=== PATIENT | male | born 1955 | race Caucasian/White ===

== ENCOUNTER 2016-11-12 22:54 | Inpatient (IN) | payer MEDICARE ==
[2016-11-12 23:16] VITALS: BP 128/63
[2016-11-12] MEDS ORDERED: Magnesium Hydroxide (MOM) 30 mL UDC PO PRN (23:21)
[2016-11-12] MEDS ORDERED: Fleet Enema 135 mL RC PRN (23:21)
[2016-11-12] MEDS ORDERED: Maalox 30 mL Cup PO PRN (23:21)
[2016-11-13] MEDS: INSULIN ASPART SLIDING SCALE 100 UNITS/ML UNIT SUBQ SCH ×4 (06:53→21:06)
[2016-11-13] MEDS: Aspirin 81mg Chewable Tab PO SCH (08:34)
--- NOTE | 2016-11-13 19:47 | History & Physical ---
ADMIT DATE: 11/12/2016 CHIEF COMPLAINT: Depression. HISTORY OF PRESENT ILLNESS: The patient is a 61-year-old male with past medical history significant for spinal cord injury with quadriparesis, diabetes mellitus, Parkinson's disease, depression, ____ [place] under Dr. Rangel's service for treatment. The patient DICTATION ENDS HERE JOB# [id number]
--- NOTE | 2016-11-13 19:48 | History & Physical ---
ADMIT DATE: 11/13/2016 CHIEF COMPLAINT: Severe depression. HISTORY OF PRESENT ILLNESS: The patient is a 61-year-old male with long history of cervical spine injury with quadriparesis, diabetes mellitus, Parkinson's disease, depression, admitted to [facility] for treatment. The patient denies any chest pain, shortness of breath, nausea, vomiting, fever, or chills. The patient has been very depressed. PAST MEDICAL HISTORY: Significant for diabetes mellitus, Parkinson's disease, cervical spine injury with quadriparesis, and history of depression. PAST SURGICAL HISTORY: Cervical spine surgery. ALLERGIES: None. MEDICATIONS: Follow admission reconciliation. SOCIAL HISTORY: Nonsmoker, no alcohol, no drug. FAMILY HISTORY: Noncontributory. REVIEW OF SYSTEMS: RENAL SYSTEM: No history of chronic renal disorder. CARDIOVASCULAR SYSTEM: No coronary artery disease. ENDOCRINE SYSTEM: History of diabetes mellitus. GASTROINTESTINAL SYSTEM: No upper or lower gastrointestinal bleed. NEUROLOGICAL: He has history of Parkinson's disease and spinal cord injury with spastic quadriparesis. MUSCULOSKELETAL SYSTEM: He has weakness of the upper and lower extremities. RESPIRATOR SYSTEM: No asthma. HEMATOLOGIC SYSTEM: No bleeding tendencies. GENITOURINARY: No dysuria, hematuria. PHYSICAL EXAMINATION: GENERAL: He is awake, alert, oriented, not in pain or distress. VITAL SIGNS: Temperature 97.8, heart rate 62, and blood pressure 131/70. HEENT: Normocephalic. Pupils are reacting and equal to light and accommodation. Sclerae clear. NECK: Supple. Negative for lymphadenopathy, JVD or bruit. CHEST: Bilaterally normal. No rhonchi or wheezing. HEART: S1 and S2 normal. No murmur or gallop. ABDOMEN: Soft. Bowel sounds positive. EXTREMITIES: No edema. BACK: Normal. SKIN: Significant for cellulitis of the right lower extremity. NEUROLOGIC: Awake, alert, and oriented. He has a spastic quadriparesis with upper or lower extremities. ASSESSMENT: 1. Diabetes mellitus. 2. Parkinson's disease. 3. Spinal cord injury with quadriparesis. 4. Cellulitis of the right lower extremity. 5. Major depression. PLAN: The patient admitted to the hospital under Dr. Rangel's service. Medical problem to be addressed during this hospitalization is depression. Medical problems to be addressed after discharge are Parkinson disease and diabetes mellitus. The patient is medically stable for activity. Thank Dr. Moraes for asking me to see your patient. JOB# [id number]
--- NOTE | 2016-11-14 00:33 | Psychosocial Evaluation ---
DATE OF SERVICE: 11/13/2016 CHIEF COMPLAINT: Suicidal ideations. HISTORY OF PRESENT ILLNESS: The patient is a 61-year-old male with history of depression and Parkinson's disease. The patient was placed on a hold for dangers to self after the patient wanted to kill himself with plan to either overdose on pills or slash his wrist. The patient does have history of suicidal attempts with the same plans. The patient said that he has been feeling depressed because he is "tired of my Parkinson's disease." He has been feeling hopeless and helpless, especially that his medical condition is getting worse. The patient also has been having lack of energy and lack of motivations. Also, has not been able to sleep at night. PAST PSYCHIATRIC HISTORY: The patient has history of depression and suicidal attempts. He is currently on Prozac. PAST MEDICAL HISTORY: The patient has Parkinson's disease. SOCIAL HISTORY: The patient lives with his girlfriend. He is single, never , and has no children. He denies alcohol or street drug use, but he said that he occasionally smokes marijuana. He denies any legal issues and denies any history of abuse. ALLERGIES: CLONAZEPAM. MENTAL STATUS EXAMINATION: The patient appears older than his stated age. He is on wheelchair. Shaky and restless. The patient denies any hallucinations or delusions. Admits to suicidal ideations, but denies any homicidal ideations. The patient is alert and oriented to time, place, person, and situation. Intact immediate, recent, and remote memories. Fair insight. Fair judgment. He seems to be of average intelligence based on his verbal ability. ASSESSMENT: PRIMARY DIAGNOSIS: Major depression, severe, recurrent, without psychotic features. MEDICAL DIAGNOSIS: Parkinson disease. TREATMENT PLAN: We will monitor the patient's condition and behavior closely. We will start individual as well as milieu psychotherapy. We will monitor psychotropic medications. We will continue Prozac. Also, supportive therapy. ESTIMATED LENGTH OF STAY: 7-10 days. THE PATIENT'S STRENGTHS AND WEAKNESSES: The patient's strength is not clear at this time. Weakness is ineffective coping. AFTER-DISCHARGE PLAN: Outpatient treatment and followup will continue as an outpatient. CRITERIA FOR DISCHARGE: The patient will not be suicidal and will stabilize psychotropic medications and we will establish outpatient treatment plans. JOB# [id number]
[2016-11-14] MEDS: INSULIN ASPART SLIDING SCALE 100 UNITS/ML UNIT SUBQ SCH ×4 (06:30→20:25)
[2016-11-14] MEDS: Aspirin 81mg Chewable Tab PO SCH (08:58)
[2016-11-14] MEDS: Therahoney Gel 42.5gm Tube TP SCH (08:58)
--- NOTE | 2016-11-14 15:20 | Internal Medicine Prog Note ---
Internal Medicine Subjective - Subjective Service Date: 11/14/16 Patient seen and examined:: with staff Patient is:: awake, in bed Per staff patient has:: no adverse event Internal Medicine Objective - Results Recent Labs: Laboratory Last Values POC Glucose 250 MG/DL (70 - 105) H 11/14/16 11:10 Hemoglobin A1c % 6.2 % (4.0-6.0) H 11/13/16 08:25 - Physical Exam Vitals and I&O: Vital Signs Temp 98.2 F 11/14/16 14:00 Pulse 73 11/14/16 14:00 Resp 20 11/14/16 14:00 BP 120/74 11/14/16 14:00 Pulse Ox 98 11/14/16 14:00 Intake & Output 11/13/16 11/14/16 11/14/16 18:59 06:59 18:59 Intake Total 1000 Balance 1000 Intake: Oral 1000 Other: # Voids 3 # Bowel Movements 1 Active Medications: Current Medications Acetaminophen (Tylenol) 650 mg PO Q6H PRN PRN Reason: Mild Pain/Headache/T above 101 Stop: 01/11/17 23:20 Last Admin: 11/13/16 01:15 Dose: 650 mg Al Hydrox/Mg Hydrox/Simethicone (Maalox) 30 ml PO Q6H PRN PRN Reason: Dyspepsia Stop: 01/11/17 23:20 Aspirin (Aspirin Chewable) 81 mg PO DAILY [facility] Stop: 01/12/17 08:59 Last Admin: 11/14/16 08:58 Dose: 81 mg Carbidopa/Levodopa (Sinemet 25mg-100 Mg) 1 tab PO Q2HR PRN PRN Reason: Parkinson's Stop: 01/12/17 18:18 Last Admin: 11/14/16 14:38 Dose: 1 tab Cephalexin Monohydrate (Keflex) 500 mg PO Q12HR [facility] Stop: 01/12/17 08:59 Last Admin: 11/14/16 08:58 Dose: 500 mg Entacapone (Comtan) 200 mg PO TID [facility] Stop: 01/12/17 08:59 Last Admin: 11/14/16 14:38 Dose: 200 mg Fluoxetine HCl (Prozac) 40 mg PO DAILY [facility] Stop: 01/12/17 08:59 Last Admin: 11/14/16 08:58 Dose: 40 mg Gabapentin (Neurontin) 300 mg PO TID [facility] Stop: 01/12/17 08:59 Last Admin: 11/14/16 14:38 Dose: 300 mg Ibuprofen (Motrin) 600 mg PO Q6HR PRN PRN Reason: Pain (Mild) Stop: 01/11/17 23:34 Last Admin: 11/13/16 20:00 Dose: 600 mg Insulin Aspart (Novolog Insulin Sliding Scale) 0 units SUBQ ACHS [facility] PRN Reason: Protocol Stop: 01/12/17 07:29 Last Admin: 11/14/16 11:18 Dose: 4 units Lorazepam (Ativan) 1 mg PO Q6H PRN; Protocol PRN Reason: Anxiety/Agitation Stop: 01/11/17 23:20 Last Admin: 11/13/16 20:00 Dose: 1 mg Magnesium Hydroxide (Milk Of Magnesia) 30 ml PO HS PRN PRN Reason: Constipation Stop: 01/11/17 23:20 Metformin HCl (Glucophage) 500 mg PO BID [facility] Stop: 01/12/17 08:59 Last Admin: 11/14/16 08:58 Dose: 500 mg Pramipexole Dihydrochloride (Mirapex) 0.75 mg PO TID [facility] Stop: 01/12/17 08:59 Last Admin: 11/14/16 14:38 Dose: 0.75 mg Sodium Phosphate (Fleet Enema) 135 ml RC DAILY PRN PRN Reason: Constipation Stop: 01/11/17 23:20 Wound Care/Dressing Products (Therahoney) 1 appl TP DAILY [facility] Stop: 01/12/17 08:59 Last Admin: 11/14/16 08:58 Dose: 1 appl Zolpidem Tartrate (Ambien) 5 mg PO HS PRN PRN Reason: Insomnia Stop: 01/11/17 23:20 General: alert HEENT: NC/AT, PERRLA, EOMI, throat clear Neck: Supple, No JVD, No thyromegaly Lungs: CTAB Cardiovascular: RRR, Normal S1, Normal S2 Abdomen: soft, non-tender Extremities: clear Neurological: alert Internal Medicine Assmt/Plan - Assessment Assessment: 1.DM 2.PARKINSON DISEASE. 3.QUADRIPARESIS. 4.DEPRESSION. - Plan Plan: CONTINUE ON CURRENT MEDICATION AND DIET.
--- NOTE | 2016-11-14 21:32 | Progress Notes ---
DATE: 11/14/2016 SUBJECTIVE: Chart reviewed and the patient interviewed. Also discussed the patient's condition with the staff and reviewed records and labs. The patient still has episodes of irritability and anger. The patient also is still severely depressed. Also, noticed by staff to talk to himself. He also is still demanding at times and is "want computer and Internet right now." He is on the other hand easier to redirect him and he is cooperative in regard to his treatment. He continued to take Prozac at a dose of 40 mg everyday. The patient is frustrated with his medical issues and with his medical problems. During interview, the patient is shaky secondary to Parkinson's. Also, is on wheelchair and anxious. He is cooperative with fair eye contact and normal tone and rate of speech. ASSESSMENT: The patient is still depressed. TREATMENT PLAN: Continue to monitor his behavior and his condition closely. Also, continue adjusting psychotropic medications and working on his ineffective coping. JOB# [id number]
[2016-11-15] MEDS: INSULIN ASPART SLIDING SCALE 100 UNITS/ML UNIT SUBQ SCH ×4 (06:36→21:10)
[2016-11-15] MEDS: Therahoney Gel 42.5gm Tube TP SCH (08:29)
[2016-11-15] MEDS: Aspirin 81mg Chewable Tab PO SCH (08:29)
--- NOTE | 2016-11-15 15:37 | Internal Medicine Prog Note ---
Internal Medicine Subjective - Subjective Service Date: 11/15/16 Patient seen and examined:: without staff Patient is:: awake, in bed Per staff patient has:: no adverse event Internal Medicine Objective - Results Recent Labs: Laboratory Last Values POC Glucose 108 MG/DL (70 - 105) H 11/15/16 12:14 Hemoglobin A1c % 6.2 % (4.0-6.0) H 11/13/16 08:25 - Physical Exam Vitals and I&O: Vital Signs Temp 97.8 F 11/15/16 06:07 Pulse 74 11/15/16 06:07 Resp 18 11/15/16 06:07 BP 117/56 11/15/16 06:07 Pulse Ox 98 11/15/16 06:07 Intake & Output 11/14/16 11/15/16 11/15/16 18:59 06:59 18:59 Intake Total 1200 480 Balance 1200 480 Weight (lbs) 72.212 kg Intake: Oral 1200 480 Other: # Voids 1 # Bowel Movements 1 Active Medications: Current Medications Acetaminophen (Tylenol) 650 mg PO Q6H PRN PRN Reason: Mild Pain/Headache/T above 101 Stop: 01/11/17 23:20 Last Admin: 11/13/16 01:15 Dose: 650 mg Al Hydrox/Mg Hydrox/Simethicone (Maalox) 30 ml PO Q6H PRN PRN Reason: Dyspepsia Stop: 01/11/17 23:20 Aspirin (Aspirin Chewable) 81 mg PO DAILY [facility] Stop: 01/12/17 08:59 Last Admin: 11/15/16 08:29 Dose: 81 mg Carbidopa/Levodopa (Sinemet 25mg-100 Mg) 1 tab PO Q2HR PRN PRN Reason: Parkinson's Stop: 01/12/17 18:18 Last Admin: 11/15/16 12:20 Dose: 1 tab Cephalexin Monohydrate (Keflex) 500 mg PO Q12HR [facility] Stop: 01/12/17 08:59 Last Admin: 11/15/16 08:30 Dose: 500 mg Entacapone (Comtan) 200 mg PO TID [facility] Stop: 01/12/17 08:59 Last Admin: 11/15/16 08:29 Dose: 200 mg Fluoxetine HCl (Prozac) 40 mg PO DAILY [facility] Stop: 01/12/17 08:59 Last Admin: 11/15/16 08:30 Dose: 40 mg Gabapentin (Neurontin) 300 mg PO TID [facility] Stop: 01/12/17 08:59 Last Admin: 11/15/16 08:30 Dose: 300 mg Ibuprofen (Motrin) 600 mg PO Q6HR PRN PRN Reason: Pain (Mild) Stop: 01/11/17 23:34 Last Admin: 11/14/16 22:30 Dose: 600 mg Insulin Aspart (Novolog Insulin Sliding Scale) 0 units SUBQ ACHS [facility] PRN Reason: Protocol Stop: 01/12/17 07:29 Last Admin: 11/15/16 12:20 Dose: Not Given Lorazepam (Ativan) 1 mg PO Q6H PRN; Protocol PRN Reason: Anxiety/Agitation Stop: 01/11/17 23:20 Last Admin: 11/13/16 20:00 Dose: 1 mg Magnesium Hydroxide (Milk Of Magnesia) 30 ml PO HS PRN PRN Reason: Constipation Stop: 01/11/17 23:20 Metformin HCl (Glucophage) 500 mg PO BID [facility] Stop: 01/12/17 08:59 Last Admin: 11/15/16 08:29 Dose: 500 mg Pramipexole Dihydrochloride (Mirapex) 0.75 mg PO TID [facility] Stop: 01/12/17 08:59 Last Admin: 11/15/16 08:31 Dose: 0.75 mg Sodium Phosphate (Fleet Enema) 135 ml RC DAILY PRN PRN Reason: Constipation Stop: 01/11/17 23:20 Wound Care/Dressing Products (Therahoney) 1 appl TP DAILY [facility] Stop: 01/12/17 08:59 Last Admin: 11/15/16 08:29 Dose: 1 appl Zolpidem Tartrate (Ambien) 5 mg PO HS PRN PRN Reason: Insomnia Stop: 01/11/17 23:20 General: alert HEENT: NC/AT, PERRLA, EOMI, throat clear Neck: Supple, No JVD, No thyromegaly Lungs: CTAB Cardiovascular: RRR, Normal S1, Normal S2 Abdomen: soft, non-tender Extremities: clear Neurological: alert Internal Medicine Assmt/Plan - Assessment Assessment: 1.DM 2.PARKINSON DISEASE. 3.QUADRIPARESIS. 4.DEPRESSION. - Plan Plan: CONTINUE ON CURRENT MEDICATION AND DIET. Nutritional Asmnt/Malnutr-PDOC - Dietary Evaluation Malnutrition Findings (Please click <Entered> for more info): Nutritional Asmnt/Malnutrition Start: 11/14/16 12: 38 Text: Status: Complete Freq: Document 11/14/16 18:51 [facility] (Rec: 11/14/16 18:57 [facility] [id number]) Nutritional Asmnt/Malnutrition Patient General Information Nutritional Screening Consult Diagnosis Major depression Pertinent Medical Hx/Surgical Hx DM, Parkinson's disease, cervical spine injury with quadriplesis, depression Subjective Information Nutrition Consult for pressure ulcer received and completed. Pt is a 61-year-old male from [facility] admitted with chief complaint of severe depression . Pt was asleep during time of visit. Pt appears well nourished with no signs of muscle or fat depletion. Current Diet Order/ Nutrition Support MEÑO Pertinent Medications Novolog, Glucophage Pertinent Labs (11/13) A1C 6.2H. (11/14) POC Glucose 190H-250H Nutritional Hx/Data Height 1.75 m Height (Calculated Centimeters) 175.3 Current Weight (lbs) 72.212 kg Weight (Calculated Kilograms) 72.2 Weight (Calculated Grams) 58867.9 [place] Body Weight 160 % [place] Body Weight 100 Weight Status Approriate GI Symptoms GI Symptoms None Food Allergies No Skin Integrity/Comment: Franco [place]. Stage 1 pressure ulcer to Left Medial [place] Current %PO Good (75-100%) Estimated Nutritional Goals BEE in Kcals: Using Current wt Calories/Kcals/Kg [facility] 72.4 kg Kcals Calculated 0249-8206 kcals/day (25-30 kcals/kg) Protein: Using Current wt Protein g/kg: Based on current wt 72.4 kg with consideration of wound Protein Calculated 72-86 gm/day (1-1.2 gm/kg) Fluid: ml 1413-2069 ml/day (1 ml/kcal) Nutritional Problem 1. Problem Problem Increased protein needs related to Etiology altered skin integrity as evidenced by Signs/Symptoms: stage 1 pressure ulcer to Left Medial [place], wound RN notes. Malnutrition Alert Protein-Calorie Malnutrition N/A Is there a minimum of two criteria No selected? Query Text:Check all the applicable criteria. A minimum of two criteria are recommended for diagnosis of either severe or non-severe malnutrition. Malnutrition Related to Morbid Obesity Malnutrition related to morbid obesity No Intervention/Recommendation Comments 1. Recommend CCHO-75 GM diet to meet estimated nutritional needs to promote wound healing and glycemic control. Expected Outcomes/Goals Expected Outcomes/Goals Have pt meet at least 75% of estimated nutritional needs for improved wound healnig. Physician Parameters for PEM Normal Weight % 90% - 110% (Normal) Body Mass Index (BMI) 19 - 24 (Normal)
--- NOTE | 2016-11-15 22:03 | Progress Notes ---
DATE: 11/15/2016 The patient was seen, chart reviewed, and discussed with staff. The patient continues to be very depressed, stating that he is suffering from severe stiffness in his limbs. Often seen talking to himself and sometimes making unreasonable demands such as being allowed to use the computer and internet. He has been compliant with medications, denying any undue side effects. PLAN: The patient continues to be extremely depressed status post suicide attempt by overdose on Sinemet so that he will require treatment. We will monitor the patient on a daily basis for his response to treatment and titrate medications as needed. JOB# [id number]
[2016-11-16] MEDS: INSULIN ASPART SLIDING SCALE 100 UNITS/ML UNIT SUBQ SCH ×4 (06:32→21:04)
[2016-11-16] MEDS: Aspirin 81mg Chewable Tab PO SCH (09:00)
[2016-11-16] MEDS: Therahoney Gel 42.5gm Tube TP SCH (09:01)
--- NOTE | 2016-11-16 17:11 | Internal Medicine Prog Note ---
Internal Medicine Subjective - Subjective Service Date: 11/16/16 Patient seen and examined:: without staff (HE FEELS BETTER,LESS PAIN.) Patient is:: awake, in bed Per staff patient has:: no adverse event Internal Medicine Objective - Results Recent Labs: Laboratory Last Values POC Glucose 137 MG/DL (70 - 105) H 11/16/16 16:57 Hemoglobin A1c % 6.2 % (4.0-6.0) H 11/13/16 08:25 - Physical Exam Vitals and I&O: Vital Signs Temp 97.6 F 11/16/16 15:35 Pulse 75 11/16/16 15:35 Resp 19 11/16/16 15:35 BP 115/61 11/16/16 15:35 Pulse Ox 99 11/16/16 15:35 Intake & Output 11/15/16 11/16/16 11/16/16 18:59 06:59 18:59 Intake Total 800 120 Balance 800 120 Intake: Oral 800 120 Other: # Voids 3 3 # Bowel Movements 2 1 Active Medications: Current Medications Acetaminophen (Tylenol) 650 mg PO Q6H PRN PRN Reason: Mild Pain/Headache/T above 101 Stop: 01/11/17 23:20 Last Admin: 11/13/16 01:15 Dose: 650 mg Al Hydrox/Mg Hydrox/Simethicone (Maalox) 30 ml PO Q6H PRN PRN Reason: Dyspepsia Stop: 01/11/17 23:20 Aspirin (Aspirin Chewable) 81 mg PO DAILY [facility] Stop: 01/12/17 08:59 Last Admin: 11/16/16 09:00 Dose: 81 mg Carbidopa/Levodopa (Sinemet 25mg-100 Mg) 1 tab PO Q2HR PRN PRN Reason: Parkinson's Stop: 01/12/17 18:18 Last Admin: 11/16/16 15:29 Dose: 1 tab Cephalexin Monohydrate (Keflex) 500 mg PO Q12HR [facility] Stop: 01/12/17 08:59 Last Admin: 11/16/16 09:00 Dose: 500 mg Entacapone (Comtan) 200 mg PO TID [facility] Stop: 01/12/17 08:59 Last Admin: 11/16/16 13:24 Dose: 200 mg Fluoxetine HCl (Prozac) 40 mg PO DAILY [facility] Stop: 01/12/17 08:59 Last Admin: 11/16/16 09:00 Dose: 40 mg Gabapentin (Neurontin) 300 mg PO TID [facility] Stop: 01/12/17 08:59 Last Admin: 11/16/16 13:24 Dose: 300 mg Ibuprofen (Motrin) 600 mg PO Q6HR PRN PRN Reason: Pain (Mild) Stop: 01/11/17 23:34 Last Admin: 11/16/16 15:32 Dose: 600 mg Insulin Aspart (Novolog Insulin Sliding Scale) 0 units SUBQ ACHS [facility] PRN Reason: Protocol Stop: 01/12/17 07:29 Last Admin: 11/16/16 17:03 Dose: Not Given Lorazepam (Ativan) 1 mg PO Q6H PRN; Protocol PRN Reason: Anxiety/Agitation Stop: 01/11/17 23:20 Last Admin: 11/13/16 20:00 Dose: 1 mg Magnesium Hydroxide (Milk Of Magnesia) 30 ml PO HS PRN PRN Reason: Constipation Stop: 01/11/17 23:20 Metformin HCl (Glucophage) 500 mg PO BID [facility] Stop: 01/12/17 08:59 Last Admin: 11/16/16 09:00 Dose: 500 mg Pramipexole Dihydrochloride (Mirapex) 0.75 mg PO TID [facility] Stop: 01/12/17 08:59 Last Admin: 11/16/16 13:24 Dose: 0.75 mg Sodium Phosphate (Fleet Enema) 135 ml RC DAILY PRN PRN Reason: Constipation Stop: 01/11/17 23:20 Wound Care/Dressing Products (Therahoney) 1 appl TP DAILY [facility] Stop: 01/12/17 08:59 Last Admin: 11/16/16 09:01 Dose: 1 appl Zolpidem Tartrate (Ambien) 5 mg PO HS PRN PRN Reason: Insomnia Stop: 01/11/17 23:20 Last Admin: 11/16/16 01:34 Dose: 5 mg General: alert HEENT: NC/AT, PERRLA, EOMI, throat clear Neck: Supple, No JVD, No thyromegaly Lungs: CTAB Cardiovascular: RRR, Normal S1, Normal S2 Abdomen: soft, non-tender Extremities: clear Neurological: alert Internal Medicine Assmt/Plan - Assessment Assessment: 1.DM 2.PARKINSON DISEASE. 3.QUADRIPARESIS. 4.DEPRESSION. - Plan Plan: CONTINUE ON CURRENT MEDICATION AND DIET. Nutritional Asmnt/Malnutr-PDOC - Dietary Evaluation Malnutrition Findings (Please click <Entered> for more info): Nutritional Asmnt/Malnutrition Start: 11/14/16 12: 38 Text: Status: Complete Freq: Document 11/14/16 18:51 [facility] (Rec: 11/14/16 18:57 [facility] [id number]) Nutritional Asmnt/Malnutrition Patient General Information Nutritional Screening Consult Diagnosis Major depression Pertinent Medical Hx/Surgical Hx DM, Parkinson's disease, cervical spine injury with quadriplesis, depression Subjective Information Nutrition Consult for pressure ulcer received and completed. Pt is a 61-year-old male from [facility] admitted with chief complaint of severe depression . Pt was asleep during time of visit. Pt appears well nourished with no signs of muscle or fat depletion. Current Diet Order/ Nutrition Support MEÑO Pertinent Medications Novolog, Glucophage Pertinent Labs (11/13) A1C 6.2H. (11/14) POC Glucose 190H-250H Nutritional Hx/Data Height 1.75 m Height (Calculated Centimeters) 175.3 Current Weight (lbs) 72.212 kg Weight (Calculated Kilograms) 72.2 Weight (Calculated Grams) 73535.9 [place] Body Weight 160 % [place] Body Weight 100 Weight Status Approriate GI Symptoms GI Symptoms None Food Allergies No Skin Integrity/Comment: Franco [place]. Stage 1 pressure ulcer to Left Medial [place] Current %PO Good (75-100%) Estimated Nutritional Goals BEE in Kcals: Using Current wt Calories/Kcals/Kg Based on currenet wt 72.4 kg Kcals Calculated 8983-3249 kcals/day (25-30 kcals/kg) Protein: Using Current wt Protein g/kg: Based on current wt 72.4 kg with consideration of wound Protein Calculated 72-86 gm/day (1-1.2 gm/kg) Fluid: ml 7772-2851 ml/day (1 ml/kcal) Nutritional Problem 1. Problem Problem Increased protein needs related to Etiology altered skin integrity as evidenced by Signs/Symptoms: stage 1 pressure ulcer to Left Medial [place], wound RN notes. Malnutrition Alert Protein-Calorie Malnutrition N/A Is there a minimum of two criteria No selected? Query Text:Check all the applicable criteria. A minimum of two criteria are recommended for diagnosis of either severe or non-severe malnutrition. Malnutrition Related to Morbid Obesity Malnutrition related to morbid obesity No Intervention/Recommendation Comments 1. Recommend CCHO-75 GM diet to meet estimated nutritional needs to promote wound healing and glycemic control. Expected Outcomes/Goals Expected Outcomes/Goals Have pt meet at least 75% of estimated nutritional needs for improved wound healnig. Physician Parameters for PEM Normal Weight % 90% - 110% (Normal) Body Mass Index (BMI) 19 - 24 (Normal)
--- NOTE | 2016-11-16 22:02 | Progress Notes ---
DATE: 11/16/2016 SUBJECTIVE: The patient seen, chart reviewed, discussed with staff. The patient is currently in the hospital, states that he is here because he cannot take care of himself due to depression, Parkinson's disease. The patient was suicidal, wanted to kill himself with intent and plan. The patient still notes he feels hopeless and hopeless, despairing. Cannot take care of himself, feels he is declining from a medical standpoint, complaints of pain, eating fairly well, sleeping fairly well. No side effects noted. ASSESSMENT: The patient remains symptomatic, depressed, withdrawn, still endorsing intermittent SI, not tonie for safety. PLAN: We will continue to monitor. The patient will likely need more time in the hospital. There are certainly continued safety concerns and concerns about his discharge planning. The patient with some episodes of demanding behaviors in the hospital, but at this time he is calmer. [facility]# [id number]
[2016-11-17] MEDS: INSULIN ASPART SLIDING SCALE 100 UNITS/ML UNIT SUBQ SCH ×4 (06:58→20:56)
[2016-11-17] MEDS: Aspirin 81mg Chewable Tab PO SCH (08:24)
[2016-11-17] MEDS: Therahoney Gel 42.5gm Tube TP SCH (11:05)
--- NOTE | 2016-11-17 18:27 | Internal Medicine Prog Note ---
Internal Medicine Subjective - Subjective Service Date: 11/17/16 Patient seen and examined:: without staff Patient is:: awake, non-interactive, in wheelchair Per staff patient has:: no adverse event Internal Medicine Objective - Results Recent Labs: Laboratory Last Values POC Glucose 153 MG/DL (70 - 105) H 11/17/16 16:56 Hemoglobin A1c % 6.2 % (4.0-6.0) H 11/13/16 08:25 - Physical Exam Vitals and I&O: Vital Signs Temp 98.1 F 11/17/16 15:43 Pulse 69 11/17/16 15:43 Resp 20 11/17/16 15:43 BP 103/56 11/17/16 15:43 Pulse Ox 96 11/17/16 15:43 Intake & Output 11/16/16 11/17/16 11/17/16 18:59 06:59 18:59 Intake Total 800 Balance 800 Intake: Oral 800 Other: # Voids 3 2 # Bowel Movements 1 0 Active Medications: Current Medications Acetaminophen (Tylenol) 650 mg PO Q6H PRN PRN Reason: Mild Pain/Headache/T above 101 Stop: 01/11/17 23:20 Last Admin: 11/17/16 00:47 Dose: 650 mg Al Hydrox/Mg Hydrox/Simethicone (Maalox) 30 ml PO Q6H PRN PRN Reason: Dyspepsia Stop: 01/11/17 23:20 Aspirin (Aspirin Chewable) 81 mg PO DAILY [facility] Stop: 01/12/17 08:59 Last Admin: 11/17/16 08:24 Dose: 81 mg Carbidopa/Levodopa (Sinemet 25mg-100 Mg) 1 tab PO Q2HR PRN PRN Reason: Parkinson's Stop: 01/12/17 18:18 Last Admin: 11/17/16 13:23 Dose: 1 tab Cephalexin Monohydrate (Keflex) 500 mg PO Q12HR GILDARDO Stop: 01/12/17 08:59 Last Admin: 11/17/16 08:24 Dose: 500 mg Entacapone (Comtan) 200 mg PO TID [facility] Stop: 01/12/17 08:59 Last Admin: 11/17/16 13:24 Dose: 200 mg Fluoxetine HCl (Prozac) 40 mg PO DAILY [facility] Stop: 01/12/17 08:59 Last Admin: 11/17/16 08:24 Dose: 40 mg Gabapentin (Neurontin) 300 mg PO TID GILDARDO Stop: 01/12/17 08:59 Last Admin: 11/17/16 13:24 Dose: 300 mg Ibuprofen (Motrin) 600 mg PO Q6HR PRN PRN Reason: Pain (Mild) Stop: 01/11/17 23:34 Last Admin: 11/17/16 08:25 Dose: 600 mg Insulin Aspart (Novolog Insulin Sliding Scale) 0 units SUBQ ACHS GILDARDO PRN Reason: Protocol Stop: 01/12/17 07:29 Last Admin: 11/17/16 17:00 Dose: 2 units Lorazepam (Ativan) 1 mg PO Q6H PRN; Protocol PRN Reason: Anxiety/Agitation Stop: 01/11/17 23:20 Last Admin: 11/17/16 00:47 Dose: 1 mg Magnesium Hydroxide (Milk Of Magnesia) 30 ml PO HS PRN PRN Reason: Constipation Stop: 01/11/17 23:20 Metformin HCl (Glucophage) 500 mg PO BID GILDARDO Stop: 01/12/17 08:59 Last Admin: 11/17/16 16:18 Dose: 500 mg Pramipexole Dihydrochloride (Mirapex) 0.75 mg PO TID GILDARDO Stop: 01/12/17 08:59 Last Admin: 11/17/16 13:23 Dose: 0.75 mg Sodium Phosphate (Fleet Enema) 135 ml RC DAILY PRN PRN Reason: Constipation Stop: 01/11/17 23:20 Wound Care/Dressing Products (Therahoney) 1 appl TP DAILY GILDARDO Stop: 01/12/17 08:59 Last Admin: 11/17/16 11:05 Dose: 1 appl Zolpidem Tartrate (Ambien) 5 mg PO HS PRN PRN Reason: Insomnia Stop: 01/11/17 23:20 Last Admin: 11/16/16 01:34 Dose: 5 mg General: alert HEENT: NC/AT, PERRLA, EOMI, throat clear Neck: Supple, No JVD, No thyromegaly Lungs: CTAB Cardiovascular: RRR, Normal S1, Normal S2 Abdomen: soft, non-tender Extremities: clear Neurological: alert Internal Medicine Assmt/Plan - Assessment Assessment: 1.DM 2.PARKINSON DISEASE. 3.QUADRIPARESIS. 4.DEPRESSION. - Plan Plan: CONTINUE ON CURRENT MEDICATION AND DIET. Nutritional Asmnt/Malnutr-PDOC - Dietary Evaluation Malnutrition Findings (Please click <Entered> for more info): Nutritional Asmnt/Malnutrition Start: 11/14/16 12: 38 Text: Status: Complete Freq: Document 11/14/16 18:51 [facility] (Rec: 11/14/16 18:57 [facility] [id number]) Nutritional Asmnt/Malnutrition Patient General Information Nutritional Screening Consult Diagnosis Major depression Pertinent Medical Hx/Surgical Hx DM, Parkinson's disease, cervical spine injury with quadriplesis, depression Subjective Information Nutrition Consult for pressure ulcer received and completed. Pt is a 61-year-old male from [facility] admitted with chief complaint of severe depression . Pt was asleep during time of visit. Pt appears well nourished with no signs of muscle or fat depletion. Current Diet Order/ Nutrition Support MEÑO Pertinent Medications Novolog, Glucophage Pertinent Labs (11/13) A1C 6.2H. (11/14) POC Glucose 190H-250H Nutritional Hx/Data Height 1.75 m Height (Calculated Centimeters) 175.3 Current Weight (lbs) 72.212 kg Weight (Calculated Kilograms) 72.2 Weight (Calculated Grams) 23485.9 Holden Body Weight 160 % Holden Body Weight 100 Weight Status Approriate GI Symptoms GI Symptoms None Food Allergies No Skin Integrity/Comment: Franco 19. Stage 1 pressure ulcer to Left Medial [place] Current %PO Good (75-100%) Estimated Nutritional Goals BEE in Kcals: Using Current wt Calories/Kcals/Kg Based on currenet wt 72.4 kg Kcals Calculated 7964-0798 kcals/day (25-30 kcals/kg) Protein: Using Current wt Protein g/kg: Based on current wt 72.4 kg with consideration of wound Protein Calculated 72-86 gm/day (1-1.2 gm/kg) Fluid: ml 1397-9975 ml/day (1 ml/kcal) Nutritional Problem 1. Problem Problem Increased protein needs related to Etiology altered skin integrity as evidenced by Signs/Symptoms: stage 1 pressure ulcer to Left Medial [place], wound RN notes. Malnutrition Alert Protein-Calorie Malnutrition N/A Is there a minimum of two criteria No selected? Query Text:Check all the applicable criteria. A minimum of two criteria are recommended for diagnosis of either severe or non-severe malnutrition. Malnutrition Related to Morbid Obesity Malnutrition related to morbid obesity No Intervention/Recommendation Comments 1. Recommend CCHO-75 GM diet to meet estimated nutritional needs to promote wound healing and glycemic control. Expected Outcomes/Goals Expected Outcomes/Goals Have pt meet at least 75% of estimated nutritional needs for improved wound healnig. Physician Parameters for PEM Normal Weight % 90% - 110% (Normal) Body Mass Index (BMI) 19 - 24 (Normal)
--- NOTE | 2016-11-17 23:53 | Progress Notes ---
DATE: 11/17/2016 SUBJECTIVE: Chart reviewed and the patient interviewed. Also, discussed the patient's condition with the staff and reviewed records and labs. The patient continued to be severely depressed and he is still anxious and withdrawn. Also, continued to be feeling hopeless and helpless. Also, continues to talk about his inabilities and his physical condition. He also is still having intermittent thoughts of suicide, although states that they seem to be subsiding. ASSESSMENT: The patient is still depressed and high risk suicide. TREATMENT PLAN: Continue to monitor his behavior and his condition closely. Also, continue to work on his ineffective coping. Also, we will work on placement issue and discharge plans, and we discussed with high risk case manager possibility of placing the patient . At the same time, we will continue close observation and followup. JOB# [id number]
[2016-11-18] MEDS: INSULIN ASPART SLIDING SCALE 100 UNITS/ML UNIT SUBQ SCH ×3 (06:37→17:45)
--- NOTE | 2016-11-18 07:37 | Progress Notes ---
DATE: 11/18/2016 SUBJECTIVE: Chart reviewed and the patient interviewed. Also discussed the patient's condition with the staff and reviewed records and labs. The patient said that he fell yesterday and he was not feeling well. The patient is asking for more medications "muscle relaxants and more ." The patient has been asking for more pain medications. Also, has been depressed, and feeling hopeless and helpless. Also, still needs close monitoring. Also, during interview, the patient is depressed and anxious. Also, is interacting minimally with others and stays by himself most of the time. ASSESSMENT: The patient is still depressed. TREATMENT PLAN: We will continue monitoring his behavior and his medications closely. Also, we will continue current psychotropic medications and work on his agitation and ineffective coping. Also, working on discharge plans and placement issue. JOB# [id number]
[2016-11-18] MEDS: Aspirin 81mg Chewable Tab PO SCH (08:59)
[2016-11-18] MEDS: Therahoney Gel 42.5gm Tube TP SCH (09:01)
== END 2016-11-18 18:31 | DRG 885 ==
LOC: GERO 22:54 → EDBD 22:54
PROVIDERS: ADMIT Psychiatry & Neurology Psychiatry; ATTEND Psychiatry & Neurology Psychiatry
DX: F33.2 Major depressive disorder, recurrent severe without psychotic features (principal); G82.50 Quadriplegia, unspecified; G20 Parkinson's disease; L03.115 Cellulitis of right lower limb; R45.851 Suicidal ideations; E11.9 Type 2 diabetes mellitus without complications; Z88.8 Allergy status to other drugs, medicaments and biological substances
CPT/HCPCS: 36415-UA; 82948-90; 83036-90; 90899; G0410; J1815; Z7610

== ENCOUNTER 2017-01-21 21:48 | Inpatient (IN) | payer MEDICARE, MEDICAID ==
[2017-01-21] MEDS ORDERED: Sodium Chloride 0.9% 1,000 ML IV ONE (22:01)
[2017-01-21] MEDS ORDERED: Levofloxacin 500mg/100mL 500 MG/100 ML BAG IV ONE ×2 (22:03→22:11)
[2017-01-21 22:44] LABS: HEMOGLOBIN 15.5 gm/dL (12-16); MEAN CELL VOLUME 84.8 fl (80-99); MEAN PLATELET VOLUME 8.9 fl; PLATELET COUNT 372 Th/cmm (150-400); RED BLOOD COUNT 5.54 Mil/cmm (4.30-5.70); RED CELL DISTRIBUTION WIDTH 13.3 % (11.5-20.0)
[2017-01-21 22:45] LABS: URINE BILIRUBIN NEGATIVE (NEGATIVE); URINE BLOOD TRACE (NEGATIVE); URINE GLUCOSE (UA) NEGATIVE (NEGATIVE); URINE KETONE NEGATIVE (NEGATIVE); URINE PH 5.5 (4.6 - 8.0); URINE PROTEIN 30 mg/dL (NEGATIVE); URINE UROBILINOGEN 0.2 E.U./dL (0.2 - 1.0)
[2017-01-21 22:46] LABS: WHITE BLOOD COUNT 24.3 Th/cmm (4.8-10.8)
[2017-01-21 22:50] LABS: URINE COLOR ORANGE; URINE EPITHELIAL CELLS MODERATE /lpf (FEW); URINE WBC 0-2 /hpf (0-5)
[2017-01-21 22:51] LABS: URINE BACTERIA FEW /hpf (NONE SEEN); URINE URIC ACID CRYSTALS MODERATE /hpf (NONE SEEN)
[2017-01-21 22:57] LABS: INR 1.27 (0.5-1.4); PROTHROMBIN TIME (TEST) 13.4 SECONDS (9.5-11.5)
[2017-01-21 22:59] LABS: ALB/GLOB RATIO 0.9 (1.0-1.8); ALKALINE PHOSPHATASE 123 U/L (34-104); ANION GAP 12.6 (7.0-16.0); BILIRUBIN,TOTAL 1.4 mg/dL (0.3-1.0); BUN - UREA NITROGEN 57 mg/dL (7-25); CALCIUM SERUM 10.7 mg/dL (8.6-10.3); CARBON DIOXIDE 25.3 mEq/L (21.0-31.0); CHLORIDE 114 mEq/L (98-107); CHOLESTEROL 136 mg/dL (<200); GLUCOSE 334 mg/dL (70-105); POTASSIUM SERUM 3.9 mEq/L (3.5-5.1); SGOT 24 U/L (13-39); SGPT/ALT 17 U/L (7-52); SODIUM SERUM 148 mEq/L (136-145); TRIGLYCERIDES 113 mg/dL (<150)
--- NOTE | 2017-01-21 23:11 | ED Physician Chart ---
ED Chief Complaint/HPI - Patient Information Date Seen:: 01/21/17 Time Seen:: 21:50 Chief Complaint:: Fever History of Present Illness:: onset x 2 days of fever, cough, and congestion; no H/As, neck pain, C/P, SOB, Abd./Flank pain, A/N/V/D/C, chills, or urinary s/s Allergies:: Allergies Allergy/AdvReac Type Severity Reaction Status Date / Time bupropion [From Wellbutrin] Allergy Verified 01/21/17 22:14 clonazepam [From Klonopin] Allergy Verified 01/21/17 22:14 Vitals:: Vital Signs - 8 hr 01/21/17 21:48 Temp 97.5 F HR 116 RR 33 BP 117/79 O2 Sat % 94 Historian:: Patient, EMS Review:: Nurse's Note Reviewed, EMS run form Reviewed, Transfer documents Reviewed ED Review of Systems - Review of Systems General/Constitutional: Fever, No chills, No weight loss, No weakness, No diaphoresis, No edema, No loss of appetite Skin: No skin lesions, No rash, No bruising Head: No headache, No light-headedness Eyes: No loss of vision, No pain, No diplopia ENT: No earache, Nasal drainage, No sore throat, No tinnitus Neck: No neck pain, No swelling, No thyromegaly, No stiffness, No mass noted Cardio Vascular: No chest pain, No palpitations, No PND, No orthopnea, No edema Pulmonary: No SOB, Cough, No sputum, No wheezing GI: No nausea, No vomiting, No diarrhea, No pain, No melena, No hematochezia, No constipation, No hematemesis G/U: No dysuria, No frequency, No hematuria Musculoskeletal: No bone or joint pain, No back pain, No muscle pain Endocrine: No polyuria, No polydipsia Psychiatric: No prior psych history, No depression, No anxiety, No suicidal ideation Hematopoietic: No bruising, No lymphadenopathy Allergic/Immuno: No urticaria, No angioedema Neurological: No syncope, Focal symptoms, Weakness, Paresthesia, Headache, No seizure, Dizziness, Confusion, Vertigo ED Past Medical History - Past Medical History Obtainable: Yes Past Medical History: HTN, DM, CAD, CVA/TIA, Dyslipidemia, Arthritis, Dementia Family History: Heart disease, Diabetes Melitus, HTN Social History: Non Smoker, No Alcohol, No Drug Use, Single, Care Facility Surgical History: Pacemaker Psychiatricy History: Dementia Medication: Reviewed Family Medical History - Family Member Mother History Unknown: Yes ED Physical Exam - Physical Examination General/Constitutional: Awake, Well-developed, well-nourished, Alert, No distress, GCS 15, Non-toxic appearing, Ambulatory Head: Atraumatic Eyes: Lids, conjuctiva normal, PERRL, EOMI Skin: Nl inspection, No rash, No skin lesions, No ecchymosis, Well hydrated, No lymphadenopathy ENMT: External ears, nose nl, Nasal exam nl, Lips, teeth, gums nl Neck: Nontender, Full ROM w/o pain, No JVD, No nuchal rigidity, No bruit, No mass, No stridor Respiratory: Nl effort/Exclusion Other Respiratory comments:: Lungs: + Rales and Rhonchi Cardio Vascular: RRR, No murmur, gallop, rubs, NL S1 S2 GI: No tenderness/rebounding/guarding, No organomegaly, No hernia, Normal BS's, Nondistended, No mass/bruits, No McBurney tenderness : No CVA tenderness Extremities: No tenderness or effusion, Full ROM, normal strength in all extremities, No edema, Normal digits & nails Neuro/Psych: Alert/oriented, DTR's symmetric, Normal sensory exam, Normal motor strength, Judgement/insight normal, Mood normal, Normal gait, No focal deficits Misc: Normal back, No paraspinal tenderness ED Labs/Radiology/EKG Results - Lab Results Results: Laboratory Tests 01/21/17 01/21/17 01/21/17 22:30 22:32 22:32 WBC 24.3 H* RBC 5.54 Hgb 15.5 Hct 47.0 MCV 84.8 MCH 28.0 MCHC Differential 33.0 RDW 13.3 Plt Count 372 MPV 8.9 PT INR PTT (Actin FS) Sodium 148 H Potassium 3.9 Chloride 114 H Carbon Dioxide 25.3 Anion Gap 12.6 BUN 57 H Creatinine 1.0 Est GFR ( Amer) > 60.0 Est GFR (Non-Af Amer) > 60.0 BUN/Creatinine Ratio 57.0 Glucose 334 H Whole Bld Lactic Acid Calcium 10.7 H Total Bilirubin 1.4 H AST 24 ALT 17 Alkaline Phosphatase 123 H Creatine Kinase 404 H Troponin I Total Protein 8.6 H Albumin 4.0 L Globulin 4.6 Albumin/Globulin Ratio 0.9 L Triglycerides 113 Cholesterol 136 LDL Cholesterol Direct 88 HDL Cholesterol 33 Urine Source MID[place] Urine Color ORANGE Urine Clarity CLOUDY Urine pH 5.5 Ur Specific [place] 1.025 Urine Protein 30 H Urine Glucose (UA) NEGATIVE Urine Ketones NEGATIVE Urine Blood TRACE Urine Nitrate NEGATIVE Urine Bilirubin NEGATIVE Urine Urobilinogen 0.2 Ur Leukocyte Esterase NEGATIVE Urine RBC 2-5 H Urine WBC 0-2 Ur Epithelial Cells MODERATE Uric Acid Crystals MODERATE Urine Bacteria FEW 01/21/17 01/21/17 01/21/17 22:32 22:32 22:32 WBC RBC Hgb Hct MCV MCH MCHC Differential RDW Plt Count MPV PT 13.4 H INR 1.27 PTT (Actin FS) 25.0 L Sodium Potassium Chloride Carbon Dioxide Anion Gap BUN Creatinine Est GFR ( Amer) Est GFR (Non-Af Amer) BUN/Creatinine Ratio Glucose Whole Bld Lactic Acid 1.93 Calcium Total Bilirubin AST ALT Alkaline Phosphatase Creatine Kinase Troponin I 0.02 Total Protein Albumin Globulin Albumin/Globulin Ratio Triglycerides Cholesterol LDL Cholesterol Direct HDL Cholesterol Urine Source Urine Color Urine Clarity Urine pH Ur Specific [place] Urine Protein Urine Glucose (UA) Urine Ketones Urine Blood Urine Nitrate Urine Bilirubin Urine Urobilinogen Ur Leukocyte Esterase Urine RBC Urine WBC Ur Epithelial Cells Uric Acid Crystals Urine Bacteria Comments:: WBC: 24.3; Na+/BUN: Elevated - Radiology Results Comments:: CXR: + Infiltrate - EKG Interpretations EKG Time:: 22:15 Rate & Rhythm: 113; ST Comments:: non-specific st-t changes ED Septic Shock - . Is Septic Shock (SBP<90, OR Lactate>4 mmol\L) present?: No - <6hrs of presentation: Vital Signs: Vital Signs - 8 hr 01/21/17 21:48 Temp 97.5 F HR 116 RR 33 BP 117/79 O2 Sat % 94 ED Reassessment (Disposition) - Reassessment Reassessment Condition:: Improved - Diagnosis Diagnosis:: Dx: PNA; Leukocytosis; Sepsis; UTI; Dehydration; Hypernatremia - Aftercare/Follow up Instructions Aftercare/Follow-Up Instructions:: Counseled pt regarding lab results/diagnosis & need follow up, Counseled pt & family regarding lab results/diagnosis & need follow up - Patient Disposition Discharge/Transfer:: Acute Care w/in this hosp Accepting Physician:: Dr. Shaw Time Called:: 2299 Time Responded:: 23:00 Admitted to:: Telemetry Spoke to:: Dr. Shaw Admitting Medical Physician:: Dr. Shaw Condition at Disposition:: Stable, Improved
[2017-01-21 23:18] LABS: TOTAL CELLS COUNTED 100
[2017-01-21 23:19] LABS: BAND NEUTROPHILE 2 % (0-10); NEUTROPHILS 87 % (40-80); PLATELET ESTIMATE ADEQUATE (NORMAL)
[2017-01-21 23:34] LABS: CREATINE KINASE MB 3.7 ng/mL (0.6-6.3)
[2017-01-22 02:19] VITALS: BP 109/74
[2017-01-22] MEDS ORDERED: Piperacillin Sodium/Tazobact 3.375 gm Vial IV ONE (05:18)
[2017-01-22 06:22] LABS: HEMOGLOBIN 15.1 gm/dL (12-16); MEAN CELL VOLUME 83.7 fl (80-99); MEAN CORPUSCULAR HEMOGLOBIN 28.1 pg (26.0-30.0); MEAN CORPUSCULAR HGB CONC 33.5 pg (28.0-36.0); MEAN PLATELET VOLUME 9.3 fl; NEUTROPHILE ABSOLUTE 18.4 Th/cmm (1.8-8.0); PLATELET COUNT 360 Th/cmm (150-400); RED BLOOD COUNT 5.37 Mil/cmm (4.30-5.70); RED CELL DISTRIBUTION WIDTH 13.6 % (11.5-20.0)
[2017-01-22 06:31] LABS: WHITE BLOOD COUNT 21.1 Th/cmm (4.8-10.8)
[2017-01-22 06:42] LABS: ALB/GLOB RATIO 0.8 (1.0-1.8); ALKALINE PHOSPHATASE 114 U/L (34-104); ANION GAP 13.9 (7.0-16.0); BILIRUBIN,TOTAL 1.7 mg/dL (0.3-1.0); BUN - UREA NITROGEN 62 mg/dL (7-25); CALCIUM SERUM 10.3 mg/dL (8.6-10.3); CARBON DIOXIDE 24.7 mEq/L (21.0-31.0); CHLORIDE 116 mEq/L (98-107); GLUCOSE 277 mg/dL (70-105); POTASSIUM SERUM 3.6 mEq/L (3.5-5.1); SGOT 23 U/L (13-39); SGPT/ALT 19 U/L (7-52); SODIUM SERUM 151 mEq/L (136-145)
[2017-01-22 06:58] LABS: BAND NEUTROPHILE 3 % (0-10); NEUTROPHILS 89 % (40-80); TOTAL CELLS COUNTED 100
--- NOTE | 2017-01-22 07:45 | Diagnostic Imaging Report ---
CHEST X-RAY: AP view INDICATION: pain COMPARISON: None FINDINGS: Left chest wall ICD is noted with leads in region of right atrium and right ventricle. The patient is status post median sternotomy. Chronic lung changes are seen with no focal consolidation or effusions. Heart size is normal. Atherosclerosis of the aortic arch is noted. Degenerative changes of the spine are noted. Old right midclavicular fracture is noted. IMPRESSION: No focal consolidation identified. Postsurgical changes including evidence of prior median sternotomy and pacemaker placement.
[2017-01-22] MEDS ORDERED: Non-Formulary Item 1 EA (Cranberry [Cranberry] 400 MG) PO SCH (09:00)
[2017-01-22] MEDS ORDERED: Non-Formulary Item 1 EA (Ascorbate Calcium [Vitamin C] 500 MG) PO SCH (09:00)
[2017-01-22] MEDS: Sodium Chloride 0.45% 1,000 ML IV SCH (10:01)
[2017-01-22] MEDS: Aspirin 81mg Chewable Tab PO SCH (10:04)
[2017-01-22] MEDS: Multivitamin w/ Minerals Tab PO SCH (10:04)
[2017-01-22] MEDS ORDERED: Probiotic Screen MC PRN (11:15)
[2017-01-22] MEDS: INSULIN ASPART SLIDING SCALE 100 UNITS/ML UNIT SUBQ SCH ×3 (14:16→22:37)
--- NOTE | 2017-01-22 16:31 | Consultation ---
Consult Note - Consult Note Service Date: 01/22/17 Referring Physician: Norah Shaw Consult Note: PHYSICIAN Consultation Note: Date of Admission: 01/21/17 Purpose of Consultation: sepsis and sacral wound. Chief Complaint: Patient JOVANNA REAL was admitted to [facility] Telemetry with PNA. History of Present Illness: 61 year old male with history of severe dementia, parkinson's disease, brought in for cough congestion and fever, on initial evaluation, her temperature was 97.1n degree F and WBC count was 24k. patient was diagnosed to have aspiration pneumonia and developed cough with oral feeding. NO G tube. He had developed sacral wound. ID consult was called for sepsis and sacral wound. Past Medical History: Allergies Allergy/AdvReac Type Severity Reaction Status Date / Time bupropion [From Wellbutrin] Allergy Verified 01/21/17 22:14 clonazepam [From Klonopin] Allergy Verified 01/21/17 22:14 Vital Signs Temp 100.1 F 01/22/17 16:20 Pulse 117 01/22/17 16:20 Resp 19 01/22/17 16:20 BP 129/82 01/22/17 16:20 Pulse Ox 89 01/22/17 16:20 Intake & Output 01/21/17 01/22/17 01/22/17 18:59 06:59 18:59 Intake Total 100 350 Balance 100 350 Weight (lbs) 60.838 kg Intake: Intake, IV Amount 100 350 Piperacillin Sodium/ 100 Tazobact 3.375 gm In Sodium Chloride 0.9% 50 ml @ 100 mls/hr IV Q6HR GILDARDO Rx#:[id number] Vancomycin HCl 1 gm In 250 Sodium Chloride 0.9% 250 ml @ 165 mls/hr IV Q12H GILDARDO Rx#:[id number] Laboratory Results - last 24 hr 01/22/17 01/22/17 01/22/17 05:30 05:30 11:55 WBC 21.1 H* RBC 5.37 Hgb 15.1 Hct 45.0 MCV 83.7 MCH 28.1 MCHC Differential 33.5 RDW 13.6 Plt Count 360 MPV 9.3 Band Neutrophils % 3 Neutrophils (Manual) 89 H Lymphocytes 6 L Monocytes 2 Sodium 151 H Potassium 3.6 Chloride 116 H Carbon Dioxide 24.7 Anion Gap 13.9 BUN 62 H Creatinine 1.0 Est GFR ( Amer) > 60.0 Est GFR (Non-Af Amer) > 60.0 BUN/Creatinine Ratio 62.0 Glucose 277 H POC Glucose 305 H Calcium 10.3 Total Bilirubin 1.7 H AST 23 ALT 19 Alkaline Phosphatase 114 H Total Protein 8.3 Albumin 3.8 L Globulin 4.5 Albumin/Globulin Ratio 0.8 L Home Medication Medication Instructions Recorded Type Aspirin [Aspirin Chewable] 81 mg PO DAILY ctb 11/18/16 Rx Entacapone [Comtan] 200 mg PO TID tab 11/18/16 Rx Gabapentin [Neurontin*] 300 mg PO TID cap 11/18/16 Rx Pramipexole [Mirapex] 0.75 mg PO TID tab 11/18/16 Rx metFORMIN [Glucophage] 500 mg PO BID tab 11/18/16 Rx Acetaminophen [Tylenol] 650 mg PO Q4HR PRN MDD NTE 3 01/21/17 History grams/24 HR Ascorbate Calcium [Vitamin C] 500 mg PO DAILY 01/21/17 History Baclofen [Lioresal*] 10 mg PO TID 01/21/17 History Carbidopa/Levodopa 25/100 mg 1 tab PO DAILY 01/21/17 History [Sinemet 25mg-100 mg] Cranberry 400 mg PO DAILY 01/21/17 History Insulin Aspart Sliding Scale 1 units SUBQ ACHS 01/21/17 History [NovoLOG INSULIN SLIDING SCALE] Melatonin 5 mg PO HS 01/21/17 History Multivitamin with Minerals 1 tab PO DAILY 01/21/17 History [Multivitamins with Minerals] Tramadol HCl [Ultram] 50 mg PO TID PRN 01/21/17 History Current Medications Generic Name Dose Route Start Last Admin Trade Name Freq PRN Reason Stop Dose Admin Acetaminophen 650 mg 01/22/17 07:36 Tylenol PO 03/23/17 07:35 Q4HR PRN Mild Pain/Headache/T above 101 Acetaminophen 650 mg 01/22/17 11:37 01/22/17 11:46 Tylenol 650mg Supp RC 03/23/17 11:36 650 mg Q6H PRN Administration FEVER T ABOVE 101 Ascorbic Acid 500 mg 01/22/17 09:00 01/22/17 10:03 Vitamin C PO 03/23/17 08:59 Not Given DAILY GILDARDO Aspirin 81 mg 01/22/17 09:00 01/22/17 10:04 Aspirin Chewable PO 03/23/17 08:59 Not Given DAILY GILDARDO Baclofen 10 mg 01/22/17 09:00 01/22/17 14:15 Lioresal PO 03/23/17 08:59 Not Given TID GILDARDO Carbidopa/Levodopa 1 tab 01/22/17 09:00 01/22/17 10:04 Sinemet 25mg-100 Mg PO 03/23/17 08:59 Not Given DAILY GILDARDO Entacapone 200 mg 01/22/17 09:00 01/22/17 14:16 Comtan PO 03/23/17 08:59 Not Given TID GILDARDO Gabapentin 300 mg 01/22/17 09:00 01/22/17 14:16 Neurontin PO 03/23/17 08:59 Not Given TID GILDARDO Piperacillin Sod/Tazobactam 50 mls @ 100 mls/hr 01/22/17 06:00 01/22/17 12:41 Sod 3.375 gm/ Sodium Chloride IV 03/23/17 05:59 Infused Q6HR GILDARDO Infusion Vancomycin HCl 1 gm/ Sodium 250 mls @ 165 mls/hr 01/22/17 10:00 01/22/17 12: 07 Chloride IV 03/23/17 09:59 Infused Q12H GILDARDO Infusion Sodium Chloride 1,000 mls @ 50 mls/hr 01/22/17 09:30 01/22/17 10:01 Nacl 0.45% IV 03/23/17 09:29 50 mls/hr .Q20H GILDARDO Administration Insulin Aspart 1 units 01/22/17 11:30 01/22/17 14:16 Novolog Insulin Sliding Scale SUBQ 03/23/17 11:29 Not Given ACHS [facility] Protocol Lactobacillus Rhamnosus 1 each 01/23/17 09:00 Culturelle PO 03/24/17 08:59 DAILY GILDARDO Metformin HCl 500 mg 01/22/17 09:00 01/22/17 10:04 Glucophage PO 03/23/17 08:59 Not Given BID GILDARDO Miscellaneous 1 ea 01/22/17 09:00 Vancomycin Iv Per Pharmacy 03/23/17 08:59 DAILY GILDARDO Miscellaneous 1 ea 01/22/17 04:04 Zosyn Iv Per Pharmacy 03/23/17 04:03 DAILY PRN Cough or Congestion Miscellaneous 1 ea 01/22/17 11:15 Probiotic Screen MC 03/23/17 11:14 PRN PRN PROTOCOL Morphine Sulfate 1 mg 01/22/17 15:35 Morphine IVP 03/23/17 15:34 Q2HR PRN Pain (Moderate) Pramipexole Dihydrochloride 0.75 mg 01/22/17 09:00 01/22/17 14:17 Mirapex PO 03/23/17 08:59 Not Given TID GILDARDO Protocol Tramadol HCl 50 mg 01/22/17 07:36 Ultram PO 03/23/17 07:35 TID PRN Pain (Severe) Review of Systems: A 12 point ROS was reviewed with the pertinent positive and negatives noted in the HPI. HTN, DM, CAD, CVA/TIA, Dyslipidemia, Arthritis, Dementia. Social History Smoking Status Never smoker Drug Use No Alcohol Use No Family Medical History Family Medical History Start: 01/22/17 00: 21 Freq: ONCE Status: Active Document 01/22/17 02:00 EUNICE (Rec: 01/22/17 02:48 EUNICE [id number]) Family Medical History Mother History Unknown Yes Ethnicity Non- Living Status Unknown Hx Family Cancer No Hx Family Coronary Artery Disease Yes Hx Family Congestive Heart Failure No Hx Family Hypertension Yes Hx Family Stroke No Hx Family Diabetes Yes Hx Family Seizures No Hx Family Dementia No Hx Family AIDS No Hx Family HIV No Hx Family COPD No Hx Family Hepatitis No Hx Family Psychiatric Problems No Hx Family Tuberculosis No Physical Exam: General: Comfortable lying in bed not in acute distress. HEENT: Head: Normocephalic. Atraumatic. Oral cavity: Moist, pink tongue. Eyes : No pallor and icterus. Neck: Supple, no JVD, no use of XI muscle. Cardio: S1 and S2 within normal limits regular rhythm. Respiratory: Vesicular breath sound, crackles present bilaterally. Abdominal: Soft, nontender nondistended, bowel sounds present Genital/Urinary: Deferred Extremities: NCCE. Neurological: unresponsive. Back: sacral stage 2 wound with serous discharge. Assessment: 1.sepsis 2/2 aspiration. 2. aspiration pneumonia. 3. sacral wound. 4. dementia. 5. cad. Plan: Continue zosyn and vanco IV. wound care. poor prognosis. hospice care ordered. Thank you Dr Shaw for involving me in taking care of this patient. Signed, Andrew Valencia M.D. [id number]
--- NOTE | 2017-01-22 20:11 | History & Physical ---
ADMIT DATE: 01/22/2017 HISTORY OF PRESENT ILLNESS: The patient came to the Emergency Room and was brought from a [facility] with history of two-day fever, cough, congestion, and complained of no headaches, complained of shortness of breath, complained of no abdominal pain, no nausea or vomiting and was evaluated and found to have pneumonia, was admitted. PAST MEDICAL HISTORY: The patient is known to have history of hypertension, diabetes, coronary artery disease, CVA, history of hyperlipidemia, arthritis, and dementia. FAMILY HISTORY: ____ diabetes. PHYSICAL EXAMINATION: GENERAL: The patient is awake, alert, and short of breath. HEAD: Normal. ENT: Normal. LUNGS: Bilateral clear, rales. CARDIOVASCULAR: S1 and S2 heard. ABDOMEN: Soft. LABORATORY DATA: The patient's white count was 24.3. Electrolytes; sodium was high at 148, potassium was high, and BUN and creatinine were high. DIAGNOSES: Acute dehydration, acute renal injury, severe leukocytosis, sepsis, pneumonia, history of diabetes, and hypertension. PLAN: The patient is being admitted given IV antibiotics. I will have doctors see the patient, Dr. Valencia as well as Dr. Enriquez and I will follow the patient. JOB# [id number]
[2017-01-22] MEDS ORDERED: Non-Formulary Item 1 EA (Melatonin [Melatonin] 5 MG) PO SCH (21:00)
[2017-01-23] MEDS: INSULIN ASPART SLIDING SCALE 100 UNITS/ML UNIT SUBQ SCH ×4 (06:33→22:10)
[2017-01-23] MEDS: Sodium Chloride 0.45% 1,000 ML IV SCH (06:35)
[2017-01-23] MEDS: Aspirin 81mg Chewable Tab PO SCH (09:53)
[2017-01-23] MEDS: Multivitamin w/ Minerals Tab PO SCH (09:55)
[2017-01-23] MEDS: Lactobacillus Rhamnosus 10 Billion CFU Capsule PO SCH (12:00)
[2017-01-23] MEDS: Morphine Sulfate 2 mg/mL 1mL Syr IVP PRN (12:01)
--- NOTE | 2017-01-23 12:39 | Infectious Disease Prog Note ---
Infectious Disease Subjective - Review of Systems Service Date: 01/23/17 Subjective: No change. Low grade fever. unable to communicate. Infectious Disease Objective - Results Result Diagrams: 01/22/17 05:30 01/22/17 05:30 Recent Labs: Laboratory Last Values WBC 21.1 Th/cmm (4.8-10.8) H* 01/22/17 05:30 RBC 5.37 Mil/cmm (4.30-5.70) 01/22/17 05:30 Hgb 15.1 gm/dL (12-16) 01/22/17 05:30 Hct 45.0 % (41.0-60) 01/22/17 05:30 MCV 83.7 fl (80-99) 01/22/17 05:30 MCH 28.1 pg (26.0-30.0) 01/22/17 05:30 MCHC Differential 33.5 pg (28.0-36.0) 01/22/17 05:30 RDW 13.6 % (11.5-20.0) 01/22/17 05:30 Plt Count 360 Th/cmm (150-400) 01/22/17 05:30 MPV 9.3 fl 01/22/17 05:30 Band Neutrophils % 3 % (0-10) 01/22/17 05:30 Neutrophils (Manual) 89 % (40-80) H 01/22/17 05:30 Lymphocytes 6 % (20-50) L 01/22/17 05:30 Monocytes 2 % (2-10) 01/22/17 05:30 Platelet Estimate ADEQUATE (NORMAL) 01/21/17 22:32 PT 13.4 SECONDS (9.5-11.5) H 01/21/17 22:32 INR 1.27 (0.5-1.4) 01/21/17 22:32 PTT (Actin FS) 25.0 SECONDS (26.0-38.0) L 01/21/17 22:32 Sodium 151 mEq/L (136-145) H 01/22/17 05:30 Potassium 3.6 mEq/L (3.5-5.1) 01/22/17 05:30 Chloride 116 mEq/L (98-107) H 01/22/17 05:30 Carbon Dioxide 24.7 mEq/L (21.0-31.0) 01/22/17 05:30 Anion Gap 13.9 (7.0-16.0) 01/22/17 05:30 BUN 62 mg/dL (7-25) H 01/22/17 05:30 Creatinine 1.0 mg/dL (0.7-1.3) 01/22/17 05:30 Est GFR ( Amer) > 60.0 ml/min (>90) 01/22/17 05:30 Est GFR (Non-Af Amer) > 60.0 ml/min 01/22/17 05:30 BUN/Creatinine Ratio 62.0 01/22/17 05:30 Glucose 277 mg/dL (70-105) H 01/22/17 05:30 POC Glucose 216 MG/DL (70 - 105) H 01/23/17 11:58 Hemoglobin A1c % 7.2 % (4.0-6.0) H 01/21/17 22:32 Whole Bld Lactic Acid 1.93 mmol/L (0.60-1.99) 01/21/17 22:32 Calcium 10.3 mg/dL (8.6-10.3) 01/22/17 05:30 Total Bilirubin 1.7 mg/dL (0.3-1.0) H 01/22/17 05:30 AST 23 U/L (13-39) 01/22/17 05:30 ALT 19 U/L (7-52) 01/22/17 05:30 Alkaline Phosphatase 114 U/L (34-104) H 01/22/17 05:30 Creatine Kinase 404 U/L (30-223) H 01/21/17 22:32 CK-MB (CK-2) 3.7 ng/mL (0.6-6.3) 01/21/17 22:32 Troponin I 0.02 ng/mL (0.01-0.05) 01/21/17 22:32 B-Natriuretic Peptide 104.0 pg/mL (5.0-100.0) H 01/21/17 22:32 Total Protein 8.3 gm/dL (6.0-8.3) 01/22/17 05:30 Albumin 3.8 gm/dL (4.2-5.5) L 01/22/17 05:30 Globulin 4.5 gm/dL 01/22/17 05:30 Albumin/Globulin Ratio 0.8 (1.0-1.8) L 01/22/17 05:30 Triglycerides 113 mg/dL (<150) 01/21/17 22:32 Cholesterol 136 mg/dL (<200) 01/21/17 22:32 LDL Cholesterol Direct 88 mg/dL (75-193) 01/21/17 22:32 HDL Cholesterol 33 mg/dL (23-92) 01/21/17 22:32 Urine Source MIDSTREAM 01/21/17 22:30 Urine Color ORANGE 01/21/17 22:30 Urine Clarity CLOUDY (CLEAR) 01/21/17 22:30 Urine pH 5.5 (4.6 - 8.0) 01/21/17 22:30 Ur Specific [place] 1.025 (1.005-1.030) 01/21/17 22:30 Urine Protein 30 mg/dL (NEGATIVE) H 01/21/17 22:30 Urine Glucose (UA) NEGATIVE mg/dL (NEGATIVE) 01/21/17 22:30 Urine Ketones NEGATIVE mg/dL (NEGATIVE) 01/21/17 22:30 Urine Blood TRACE (NEGATIVE) 01/21/17 22:30 Urine Nitrate NEGATIVE (NEGATIVE) 01/21/17 22:30 Urine Bilirubin NEGATIVE (NEGATIVE) 01/21/17 22:30 Urine Urobilinogen 0.2 E.U./dL (0.2 - 1.0) 01/21/17 22:30 Ur Leukocyte Esterase NEGATIVE (NEGATIVE) 01/21/17 22:30 Urine RBC 2-5 /hpf (0-5) H 01/21/17 22:30 Urine WBC 0-2 /hpf (0-5) 01/21/17 22:30 Ur Epithelial Cells MODERATE /lpf (FEW) 01/21/17 22:30 Uric Acid Crystals MODERATE /hpf (NONE SEEN) 01/21/17 22:30 Urine Bacteria FEW /hpf (NONE SEEN) 01/21/17 22:30 Vancomycin Trough 12.6 ug/mL (-20) 01/23/17 08:45 - Physical Exam Vitals and I&O: Vital Signs Temp 100.4 F 01/23/17 12:00 Pulse 119 01/23/17 12:00 Resp 19 01/23/17 12:00 BP 118/76 01/23/17 12:00 Pulse Ox 93 01/23/17 12:00 Intake & Output 01/22/17 01/23/17 01/23/17 18:59 06:59 18:59 Intake Total 400 350 Output Total 800 Balance 400 -450 Weight (lbs) 63.684 kg Intake: Intake, IV Amount 400 350 Piperacillin Sodium/ 150 100 Tazobact 3.375 gm In Sodium Chloride 0.9% 50 ml @ 100 mls/hr IV Q6HR [facility] Rx#:[id number] Vancomycin HCl 1 gm In 250 250 Sodium Chloride 0.9% 250 ml @ 165 mls/hr IV Q12H [facility] Rx#:[id number] Output: Urine 800 Other: # Bowel Movements 0 Active Medications: Current Medications Acetaminophen (Tylenol) 650 mg PO Q4HR PRN PRN Reason: Mild Pain/Headache/T above 101 Stop: 03/23/17 07:35 Acetaminophen (Tylenol 650mg Supp) 650 mg RC Q6H PRN PRN Reason: FEVER T ABOVE 101 Stop: 03/23/17 11:36 Last Admin: 01/23/17 12:02 Dose: 650 mg Ascorbic Acid (Vitamin C) 500 mg PO DAILY [facility] Stop: 03/23/17 08:59 Last Admin: 01/23/17 09:53 Dose: Not Given Aspirin (Aspirin Chewable) 81 mg PO DAILY [facility] Stop: 03/23/17 08:59 Last Admin: 01/23/17 09:53 Dose: Not Given Baclofen (Lioresal) 10 mg PO TID [facility] Stop: 03/23/17 08:59 Last Admin: 01/23/17 09:53 Dose: Not Given Carbidopa/Levodopa (Sinemet 25mg-100 Mg) 1 tab PO DAILY [facility] Stop: 03/23/17 08:59 Last Admin: 01/23/17 09:53 Dose: Not Given Entacapone (Comtan) 200 mg PO TID [facility] Stop: 03/23/17 08:59 Last Admin: 01/23/17 09:54 Dose: Not Given Gabapentin (Neurontin) 300 mg PO TID [facility] Stop: 03/23/17 08:59 Last Admin: 01/23/17 09:54 Dose: Not Given Piperacillin Sod/Tazobactam (Sod 3.375 gm/ Sodium Chloride) 50 mls @ 100 mls/ hr IV Q6HR [facility] Stop: 03/23/17 05:59 Last Admin: 01/23/17 12:00 Dose: 100 mls/hr Vancomycin HCl 1 gm/ Sodium (Chloride) 250 mls @ 165 mls/hr IV Q12H [facility] Stop: 03/23/17 09:59 Last Admin: 01/23/17 11:59 Dose: 165 mls/hr Sodium Chloride (Nacl 0.45%) 1,000 mls @ 50 mls/hr IV .Q20H [facility] Stop: 03/23/17 09:29 Last Admin: 01/23/17 06:35 Dose: Not Given Insulin Aspart (Novolog Insulin Sliding Scale) 0 units SUBQ ACHS [facility] PRN Reason: Protocol Stop: 03/23/17 22:44 Last Admin: 01/23/17 06:33 Dose: 6 units Lactobacillus Rhamnosus (Culturelle) 1 each PO DAILY [facility] Stop: 03/24/17 08:59 Last Admin: 01/23/17 12:00 Dose: Not Given Metformin HCl (Glucophage) 500 mg PO BID [facility] Stop: 03/23/17 08:59 Last Admin: 01/23/17 09:54 Dose: Not Given Miscellaneous (Vancomycin Iv Per Pharmacy) 1 ea DAILY [facility] Stop: 03/23/17 08:59 Miscellaneous (Zosyn Iv Per Pharmacy) 1 [facility] DAILY PRN PRN Reason: Cough or Congestion Stop: 03/23/17 04:03 Miscellaneous (Probiotic Screen) 1 [facility] PRN PRN PRN Reason: PROTOCOL Stop: 03/23/17 11:14 Morphine Sulfate (Morphine) 1 mg IVP Q2HR PRN PRN Reason: Pain (Moderate) Stop: 03/23/17 15:34 Last Admin: 01/23/17 12:01 Dose: 1 mg Pramipexole Dihydrochloride (Mirapex) 0.75 mg PO TID [facility] PRN Reason: Protocol Stop: 03/23/17 08:59 Last Admin: 01/23/17 09:55 Dose: Not Given Tramadol HCl (Ultram) 50 mg PO TID PRN PRN Reason: Pain (Severe) Stop: 03/23/17 07:35 General: no acute distress, cachectic HEENT: atraumatic, normocephalic, PERRLA, EOMI Neck: supple, no thyromegaly, no lymphadenopathy Cardiovascular: S1S2, regular Lungs: clear to percussion, rhonchi Abdomen: soft, no tender, no distended, no rebound, no hepatomegaly, no splenomegaly Extremities: no cyanosis, no clubbing, no edema Neurological: other (open neyes only, no interaction.) Skin: other (sacral wound.) Infectious Disease Assmt/Plan - Assessment Assessment: 1.sepsis 2/2 aspiration. 2. aspiration pneumonia. 3. sacral wound. 4. dementia. 5. cad. - Plan Plan: Continue vancio and Zosyn. Hospice care was ordered. Nutritional Asmnt/Malnutr-PDOC - Dietary Evaluation Malnutrition Findings (Please click <Entered> for more info): Nutritional Asmnt/Malnutrition Start: 01/23/17 09: 29 Text: Status: Complete Freq: Document 01/23/17 09:29 VANESSA (Rec: 01/23/17 09:39 MPOFELIA SPRING -[email or web address]) Nutritional Asmnt/Malnutrition Patient General Information Nutritional Screening Consult Diagnosis Pneumonia, leukocytosis, sepsis, UTI, dehydration, hypernatremia Pertinent Medical Hx/Surgical Hx HTN, DM, CAD, CVA/TIA, dyslipidemia, arthritis, dementia per MD notes Parkinson's per pt's sister Subjective Information RD received Nutrition Consult (glucose 334 upon admission). Pt was seen and assessed on . Pt was non-verbal; sister at bedside provided diet Hx. She stated that pt had not eaten since 01/19/17 at [facility] as he was not able to swallow and had been deteriorating. She stated that pt had been on a soft diet. 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 Pt is not meeting optimal nutritional needs. Pt is not appropriate for nutrition education. Current Diet Order/ Nutrition Support N/A Patient / S.O Can't verbalize diet edu Pertinent Medications piperacillin/tazobactam/NaCl IV, vancomycin/NaCl IV Pertinent Labs Na 151 H, BG 277 H, BUN 62 H, HgA1c 7.2 H, ALB 3.8 L, Tbili 1.7 H, WBC 21.1 H, Cl 116 H, ALP 114 H Nutritional Hx/Data Height 1.73 m Height (Calculated Centimeters) 172.7 Current Weight (lbs) 60.781 kg Weight (Calculated Kilograms) 60.8 Weight (Calculated Grams) 02945.4 [place] Body Weight 154 lb, 70 kg % [place] Body Weight 87 Recent Weight Change Yes Weight Status Approriate GI Symptoms GI Symptoms None Difficult in: Chewing Swallowing Usual diet at home Soft foods Skin Integrity/Comment: Franco scale: 14; per RN, pt has a sacral wound Current %PO Negligible < 25% Estimated Nutritional Goals Calories/Kcals/Kg 30-35 kcal/kg IBW for sepsis, wound healing Kcals Calculated 6003-6058 kcal/day Protein g/k.5-2 gm/kg IBW for sepsis, wound healing Protein Calculated 105-140 gm/say Fluid: ml 2.1-2.5 L/day (1 ml/kcal/day for maintenance) Nutritional Problem 1. Problem Problem Inadequate nutritional intakes Etiology related to catabolism Signs/Symptoms: as evidenced by NPO greater than 3 days, and no current nutrition support to meet estimated nutritional requirements. Malnutrition Alert Food and Nutrition Intake (Severe) <50% est energy req 5days Body Fat Depletion (Non-Severe) Mild Depletion Muscle Mass (Non-Severe) Mild Depletion Is there a minimum of two criteria Yes selected? Query Text:Check all the applicable criteria. A minimum of two criteria are recommended for diagnosis of either severe or non-severe malnutrition. Malnutrition Related to Morbid Obesity Malnutrition related to morbid obesity No Intervention/Recommendation Comments * Consider nutrition support ( EN via NGT) if indicated Expected Outcomes/Goals Expected Outcomes/Goals - Monitor need for EN support w/ goal of pt meeting at least 25% of estimated nutritional needs, labs trending WNL, normal GI function, and skin integrity/wt maintenance within 2-3 days
--- NOTE | 2017-01-23 20:09 | Internal Medicine Prog Note ---
Internal Medicine Subjective - Subjective Service Date: 01/23/17 Patient seen and examined:: with staff Patient is:: awake Per staff patient has:: tolerating meds Internal Medicine Objective - Results Result Diagrams: 01/22/17 05:30 01/22/17 05:30 Recent Labs: Laboratory Last Values WBC 21.1 Th/cmm (4.8-10.8) H* 01/22/17 05:30 RBC 5.37 Mil/cmm (4.30-5.70) 01/22/17 05:30 Hgb 15.1 gm/dL (12-16) 01/22/17 05:30 Hct 45.0 % (41.0-60) 01/22/17 05:30 MCV 83.7 fl (80-99) 01/22/17 05:30 MCH 28.1 pg (26.0-30.0) 01/22/17 05:30 MCHC Differential 33.5 pg (28.0-36.0) 01/22/17 05:30 RDW 13.6 % (11.5-20.0) 01/22/17 05:30 Plt Count 360 Th/cmm (150-400) 01/22/17 05:30 MPV 9.3 fl 01/22/17 05:30 Band Neutrophils % 3 % (0-10) 01/22/17 05:30 Neutrophils (Manual) 89 % (40-80) H 01/22/17 05:30 Lymphocytes 6 % (20-50) L 01/22/17 05:30 Monocytes 2 % (2-10) 01/22/17 05:30 Platelet Estimate ADEQUATE (NORMAL) 01/21/17 22:32 PT 13.4 SECONDS (9.5-11.5) H 01/21/17 22:32 INR 1.27 (0.5-1.4) 01/21/17 22:32 PTT (Actin FS) 25.0 SECONDS (26.0-38.0) L 01/21/17 22:32 Sodium 151 mEq/L (136-145) H 01/22/17 05:30 Potassium 3.6 mEq/L (3.5-5.1) 01/22/17 05:30 Chloride 116 mEq/L (98-107) H 01/22/17 05:30 Carbon Dioxide 24.7 mEq/L (21.0-31.0) 01/22/17 05:30 Anion Gap 13.9 (7.0-16.0) 01/22/17 05:30 BUN 62 mg/dL (7-25) H 01/22/17 05:30 Creatinine 1.0 mg/dL (0.7-1.3) 01/22/17 05:30 Est GFR ( Amer) > 60.0 ml/min (>90) 01/22/17 05:30 Est GFR (Non-Af Amer) > 60.0 ml/min 01/22/17 05:30 BUN/Creatinine Ratio 62.0 01/22/17 05:30 Glucose 277 mg/dL (70-105) H 01/22/17 05:30 POC Glucose 168 MG/DL (70 - 105) H 01/23/17 16:29 Hemoglobin A1c % 7.2 % (4.0-6.0) H 01/21/17 22:32 Whole Bld Lactic Acid 1.93 mmol/L (0.60-1.99) 01/21/17 22:32 Calcium 10.3 mg/dL (8.6-10.3) 01/22/17 05:30 Total Bilirubin 1.7 mg/dL (0.3-1.0) H 01/22/17 05:30 AST 23 U/L (13-39) 01/22/17 05:30 ALT 19 U/L (7-52) 01/22/17 05:30 Alkaline Phosphatase 114 U/L (34-104) H 01/22/17 05:30 Creatine Kinase 404 U/L (30-223) H 01/21/17 22:32 CK-MB (CK-2) 3.7 ng/mL (0.6-6.3) 01/21/17 22:32 Troponin I 0.02 ng/mL (0.01-0.05) 01/21/17 22:32 B-Natriuretic Peptide 104.0 pg/mL (5.0-100.0) H 01/21/17 22:32 Total Protein 8.3 gm/dL (6.0-8.3) 01/22/17 05:30 Albumin 3.8 gm/dL (4.2-5.5) L 01/22/17 05:30 Globulin 4.5 gm/dL 01/22/17 05:30 Albumin/Globulin Ratio 0.8 (1.0-1.8) L 01/22/17 05:30 Triglycerides 113 mg/dL (<150) 01/21/17 22:32 Cholesterol 136 mg/dL (<200) 01/21/17 22:32 LDL Cholesterol Direct 88 mg/dL (75-193) 01/21/17 22:32 HDL Cholesterol 33 mg/dL (23-92) 01/21/17 22:32 Urine Source MIDSTREAM 01/21/17 22:30 Urine Color ORANGE 01/21/17 22:30 Urine Clarity CLOUDY (CLEAR) 01/21/17 22:30 Urine pH 5.5 (4.6 - 8.0) 01/21/17 22:30 Ur Specific [place] 1.025 (1.005-1.030) 01/21/17 22:30 Urine Protein 30 mg/dL (NEGATIVE) H 01/21/17 22:30 Urine Glucose (UA) NEGATIVE mg/dL (NEGATIVE) 01/21/17 22:30 Urine Ketones NEGATIVE mg/dL (NEGATIVE) 01/21/17 22:30 Urine Blood TRACE (NEGATIVE) 01/21/17 22:30 Urine Nitrate NEGATIVE (NEGATIVE) 01/21/17 22:30 Urine Bilirubin NEGATIVE (NEGATIVE) 01/21/17 22:30 Urine Urobilinogen 0.2 E.U./dL (0.2 - 1.0) 01/21/17 22:30 Ur Leukocyte Esterase NEGATIVE (NEGATIVE) 01/21/17 22:30 Urine RBC 2-5 /hpf (0-5) H 01/21/17 22:30 Urine WBC 0-2 /hpf (0-5) 01/21/17 22:30 Ur Epithelial Cells MODERATE /lpf (FEW) 01/21/17 22:30 Uric Acid Crystals MODERATE /hpf (NONE SEEN) 01/21/17 22:30 Urine Bacteria FEW /hpf (NONE SEEN) 01/21/17 22:30 Vancomycin Trough 12.6 ug/mL (10-20) 01/23/17 08:45 - Physical Exam Vitals and I&O: Vital Signs Temp 97.2 F 01/23/17 16:52 Pulse 114 01/23/17 19:33 Resp 22 01/23/17 19:33 BP 106/74 01/23/17 16:52 Pulse Ox 97 01/23/17 19:33 Intake & Output 01/23/17 01/23/17 01/24/17 06:59 18:59 06:59 Intake Total 1350 350 Output Total 800 Balance 550 350 Weight (lbs) 140 lb 6.4 oz Intake: Intake, IV Amount 1350 350 Piperacillin Sodium/ 100 100 Tazobact 3.375 gm In Sodium Chloride 0.9% 50 ml @ 100 mls/hr IV Q6HR [facility] Rx#:[id number] Sodium Chloride 0.45% 1, 1000 000 ml @ 50 mls/hr IV . Q20H [facility] Rx#:[id number] Vancomycin HCl 1 gm In 250 250 Sodium Chloride 0.9% 250 ml @ 165 mls/hr IV Q12H [facility] Rx#:[id number] Output: Urine 800 Other: # Bowel Movements 0 Active Medications: Current Medications Acetaminophen (Tylenol) 650 mg PO Q4HR PRN PRN Reason: Mild Pain/Headache/T above 101 Stop: 03/23/17 07:35 Acetaminophen (Tylenol 650mg Supp) 650 mg RC Q6H PRN PRN Reason: FEVER T ABOVE 101 Stop: 03/23/17 11:36 Last Admin: 01/23/17 12:02 Dose: 650 mg Ascorbic Acid (Vitamin C) 500 mg PO DAILY [facility] Stop: 03/23/17 08:59 Last Admin: 01/23/17 09:53 Dose: Not Given Aspirin (Aspirin Chewable) 81 mg PO DAILY [facility] Stop: 03/23/17 08:59 Last Admin: 01/23/17 09:53 Dose: Not Given Baclofen (Lioresal) 10 mg PO TID [facility] Stop: 03/23/17 08:59 Last Admin: 01/23/17 13:02 Dose: Not Given Carbidopa/Levodopa (Sinemet 25mg-100 Mg) 1 tab PO DAILY [facility] Stop: 03/23/17 08:59 Last Admin: 01/23/17 09:53 Dose: Not Given Entacapone (Comtan) 200 mg PO TID [facility] Stop: 03/23/17 08:59 Last Admin: 01/23/17 13:02 Dose: Not Given Gabapentin (Neurontin) 300 mg PO TID [facility] Stop: 03/23/17 08:59 Last Admin: 01/23/17 15:08 Dose: Not Given Piperacillin Sod/Tazobactam (Sod 3.375 gm/ Sodium Chloride) 50 mls @ 100 mls/ hr IV Q6HR [facility] Stop: 03/23/17 05:59 Last Infusion: 01/23/17 17:07 Dose: Infused Vancomycin HCl 1 gm/ Sodium (Chloride) 250 mls @ 165 mls/hr IV Q12H [facility] Stop: 03/23/17 09:59 Last Infusion: 01/23/17 13:30 Dose: Infused Sodium Chloride (Nacl 0.45%) 1,000 mls @ 50 mls/hr IV .Q20H [facility] Stop: 03/23/17 09:29 Last Admin: 01/23/17 06:35 Dose: Not Given Insulin Aspart (Novolog Insulin Sliding Scale) 0 units SUBQ ACHS [facility] PRN Reason: Protocol Stop: 03/23/17 22:44 Last Admin: 01/23/17 16:34 Dose: 2 units Lactobacillus Rhamnosus (Culturelle) 1 each PO DAILY [facility] Stop: 03/24/17 08:59 Last Admin: 01/23/17 12:00 Dose: Not Given Metformin HCl (Glucophage) 500 mg PO BID [facility] Stop: 03/23/17 08:59 Last Admin: 01/23/17 18:11 Dose: Not Given Miscellaneous (Vancomycin Iv Per Pharmacy) 1 ea DAILY [facility] Stop: 03/23/17 08:59 Miscellaneous (Zosyn Iv Per Pharmacy) 1 [facility] DAILY PRN PRN Reason: Cough or Congestion Stop: 03/23/17 04:03 Miscellaneous (Probiotic Screen) 1 [facility] PRN PRN PRN Reason: PROTOCOL Stop: 03/23/17 11:14 Morphine Sulfate (Morphine) 1 mg IVP Q2HR PRN PRN Reason: Pain (Moderate) Stop: 03/23/17 15:34 Last Admin: 01/23/17 12:01 Dose: 1 mg Pramipexole Dihydrochloride (Mirapex) 0.75 mg PO TID [facility] PRN Reason: Protocol Stop: 03/23/17 08:59 Last Admin: 01/23/17 13:01 Dose: Not Given Tramadol HCl (Ultram) 50 mg PO TID PRN PRN Reason: Pain (Severe) Stop: 03/23/17 07:35 General: weak HEENT: NC/AT, PERRLA Neck: Supple Lungs: ronchi Cardiovascular: RRR, without murmur Abdomen: soft, non-tender, non-distended, positive bowel sound Extremities: excoriation Internal Medicine Assmt/Plan - Assessment Assessment: 1.sepsis 2. aspiration pneumonia. 3. sacral wound. 4. dementia. 5. cad. - Plan Plan: WOUND CARE IVABX PER ID ASPIRATION PRECAUTIONS CONTINUE CURRENT PLAN OF CARE Nutritional Asmnt/Malnutr-PDOC - Dietary Evaluation Malnutrition Findings (Please click <Entered> for more info): Nutritional Asmnt/Malnutrition Start: 01/23/17 09: 29 Text: Status: Complete Freq: Document 01/23/17 09:29 VANESSA (Rec: 01/23/17 09:39 MPOFELIA [place]O -FNS4) Nutritional Asmnt/Malnutrition Patient General Information Nutritional Screening Consult Diagnosis Pneumonia, leukocytosis, sepsis, UTI, dehydration, hypernatremia Pertinent Medical Hx/Surgical Hx HTN, DM, CAD, CVA/TIA, dyslipidemia, arthritis, dementia per MD notes Parkinson's per pt's sister Subjective Information RD received Nutrition Consult (glucose 334 upon admission). Pt was seen and assessed on . Pt was non-verbal; sister at bedside provided diet Hx. She stated that pt had not eaten since 01/19/17 at [facility] as he was not able to swallow and had been deteriorating. She stated that pt had been on a soft diet. 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 Pt is not meeting optimal nutritional needs. Pt is not appropriate for nutrition education. Current Diet Order/ Nutrition Support N/A Patient / S.O Can't verbalize diet edu Pertinent Medications piperacillin/tazobactam/NaCl IV, vancomycin/NaCl IV Pertinent Labs Na 151 H, BG 277 H, BUN 62 H, HgA1c 7.2 H, ALB 3.8 L, Tbili 1.7 H, WBC 21.1 H, Cl 116 H, ALP 114 H Nutritional Hx/Data Height 5 ft 8 in Height (Calculated Centimeters) 172.7 Current Weight (lbs) 134 lb Weight (Calculated Kilograms) 60.8 Weight (Calculated Grams) 40372.4 [place] Body Weight 154 lb, 70 kg % [place] Body Weight 87 Recent Weight Change Yes Weight Status Approriate GI Symptoms GI Symptoms None Difficult in: Chewing Swallowing Usual diet at home Soft foods Skin Integrity/Comment: Franco scale: 14; per RN, pt has a sacral wound Current %PO Negligible < 25% Estimated Nutritional Goals Calories/Kcals/Kg 30-35 kcal/kg IBW for sepsis, wound healing Kcals Calculated 3917-3889 kcal/day Protein g/k.5-2 gm/kg IBW for sepsis, wound healing Protein Calculated 105-140 gm/say Fluid: ml 2.1-2.5 L/day (1 ml/kcal/day for maintenance) Nutritional Problem 1. Problem Problem Inadequate nutritional intakes Etiology related to catabolism Signs/Symptoms: as evidenced by NPO greater than 3 days, and no current nutrition support to meet estimated nutritional requirements. Malnutrition Alert Food and Nutrition Intake (Severe) <50% est energy req 5days Body Fat Depletion (Non-Severe) Mild Depletion Muscle Mass (Non-Severe) Mild Depletion Is there a minimum of two criteria Yes selected? Query Text:Check all the applicable criteria. A minimum of two criteria are recommended for diagnosis of either severe or non-severe malnutrition. Malnutrition Related to Morbid Obesity Malnutrition related to morbid obesity No Intervention/Recommendation Comments * Consider nutrition support ( EN via NGT) if indicated Expected Outcomes/Goals Expected Outcomes/Goals - Monitor need for EN support w/ goal of pt meeting at least 25% of estimated nutritional needs, labs trending WNL, normal GI function, and skin integrity/wt maintenance within 2-3 days
[2017-01-24 05:35] LABS: HEMATOCRIT 44.9 % (41.0-60); HEMOGLOBIN 14.9 gm/dL (12-16); MEAN CELL VOLUME 84.3 fl (80-99); MEAN CORPUSCULAR HGB CONC 33.2 pg (28.0-36.0); MEAN PLATELET VOLUME 9.6 fl; RED BLOOD COUNT 5.32 Mil/cmm (4.30-5.70); RED CELL DISTRIBUTION WIDTH 13.7 % (11.5-20.0)
[2017-01-24 05:43] LABS: ANION GAP 14.5 (7.0-16.0); BUN - UREA NITROGEN 53 mg/dL (7-25); BUN/CREATININE RATIO 40.8; CALCIUM SERUM 9.6 mg/dL (8.6-10.3); CHLORIDE 131 mEq/L (98-107); CREATININE - SERUM 1.3 mg/dL (0.7-1.3); GLUCOSE 260 mg/dL (70-105); POTASSIUM SERUM 3.5 mEq/L (3.5-5.1)
[2017-01-24 05:47] LABS: PLATELET COUNT 235 Th/cmm (150-400)
[2017-01-24 05:57] LABS: WHITE BLOOD COUNT 17.4 Th/cmm (4.8-10.8)
[2017-01-24 05:58] LABS: SODIUM SERUM 163 mEq/L (136-145)
[2017-01-24] MEDS ORDERED: D5-0.45NS 1,000 ML IV SCH (06:30)
[2017-01-24] MEDS: INSULIN ASPART SLIDING SCALE 100 UNITS/ML UNIT SUBQ SCH ×4 (06:46→22:26)
[2017-01-24 06:55] LABS: BAND NEUTROPHILE 2 % (0-10); NEUTROPHILS 82 % (40-80); PLATELET ESTIMATE ADEQUATE (NORMAL); PLATELET MORPHOLOGY PLATELET CLUMPS SEEN (NORMAL); TOTAL CELLS COUNTED 100
[2017-01-24] MEDS: Aspirin 81mg Chewable Tab PO SCH (09:57)
[2017-01-24] MEDS: Lactobacillus Rhamnosus 10 Billion CFU Capsule PO SCH (09:58)
[2017-01-24] MEDS: Multivitamin w/ Minerals Tab PO SCH (09:59)
--- NOTE | 2017-01-24 09:59 | Progress Notes ---
DATE: SUBJECTIVE: The patient was seen in his room, lying in the bed. The patient is a poor historian due to medical condition. Otherwise the patient appears to be comfortable in no acute distress. OBJECTIVE: VITAL SIGNS: Temperature 98.8, heart rate of 108, blood pressure 105/63, 98% on 2 L via nasal cannula. HEAD: Atraumatic and normocephalic. EYES: Bilateral conjunctivae are clear. Bilateral pupils are equally round and reactive. NECK: Supple. No JVD. CARDIOVASCULAR: S1 and S2, without murmur. PULMONARY: Mild inspiratory wheezing noted. GASTROINTESTINAL: Soft and nontender without guarding. Positive bowel sounds. MUSCULOSKELETAL: No clubbing, no cyanosis noted. ASSESSMENT: 1. . 2. Diabetes mellitus. 3. Hypertension. 4. Osteoarthritis. 5. History of cerebrovascular accident. 6. Pneumonia 7. Sepsis. PLAN: We will change the patient's IV fluids from half NS to D5 half NS at 75 mL per hour for . We will follow up with ID doctor and law office manager to monitor the patient's condition and behavior. Treatment plans were discussed with the patient's nurse. Treatment plans were discussed with Dr. Shaw. JOB# [id number]
[2017-01-24] MEDS: Morphine Sulfate 2 mg/mL 1mL Syr IVP PRN (16:34)
--- NOTE | 2017-01-24 16:37 | Infectious Disease Prog Note ---
Infectious Disease Subjective - Review of Systems Service Date: 01/24/17 Subjective: No change. Low grade fever. unable to communicate. Infectious Disease Objective - Results Result Diagrams: 01/24/17 04:56 01/24/17 04:56 Recent Labs: Laboratory Last Values WBC 17.4 Th/cmm (4.8-10.8) H 01/24/17 04:56 RBC 5.32 Mil/cmm (4.30-5.70) 01/24/17 04:56 Hgb 14.9 gm/dL (12-16) 01/24/17 04:56 Hct 44.9 % (41.0-60) 01/24/17 04:56 MCV 84.3 fl (80-99) 01/24/17 04:56 MCH 28.0 pg (26.0-30.0) 01/24/17 04:56 MCHC Differential 33.2 pg (28.0-36.0) 01/24/17 04:56 RDW 13.7 % (11.5-20.0) 01/24/17 04:56 Plt Count 235 Th/cmm (150-400) D 01/24/17 04:56 MPV 9.6 fl 01/24/17 04:56 Band Neutrophils % 2 % (0-10) 01/24/17 04:56 Neutrophils (Manual) 82 % (40-80) H 01/24/17 04:56 Lymphocytes 11 % (20-50) L 01/24/17 04:56 Monocytes 5 % (2-10) 01/24/17 04:56 Platelet Estimate ADEQUATE (NORMAL) 01/24/17 04:56 Platelet Morphology PLATELET CLUMPS SEEN (NORMAL) 01/24/17 04:56 RBC Morph Micro Appear NORMAL (NORMAL) 01/24/17 04:56 PT 13.4 SECONDS (9.5-11.5) H 01/21/17 22:32 INR 1.27 (0.5-1.4) 01/21/17 22:32 PTT (Actin FS) 25.0 SECONDS (26.0-38.0) L 01/21/17 22:32 Sodium 163 mEq/L (136-145) H* 01/24/17 04:56 Potassium 3.5 mEq/L (3.5-5.1) 01/24/17 04:56 Chloride 131 mEq/L (98-107) H 01/24/17 04:56 Carbon Dioxide 21.0 mEq/L (21.0-31.0) 01/24/17 04:56 Anion Gap 14.5 (7.0-16.0) 01/24/17 04:56 BUN 53 mg/dL (7-25) H 01/24/17 04:56 Creatinine 1.3 mg/dL (0.7-1.3) 01/24/17 04:56 Est GFR ( Amer) > 60.0 ml/min (>90) 01/24/17 04:56 Est GFR (Non-Af Amer) 59.6 ml/min 01/24/17 04:56 BUN/Creatinine Ratio 40.8 01/24/17 04:56 Glucose 260 mg/dL (70-105) H 01/24/17 04:56 POC Glucose 272 MG/DL (70 - 105) H 01/24/17 11:53 Hemoglobin A1c % 7.2 % (4.0-6.0) H 01/21/17 22:32 Whole Bld Lactic Acid 1.93 mmol/L (0.60-1.99) 01/21/17 22:32 Calcium 9.6 mg/dL (8.6-10.3) 01/24/17 04:56 Total Bilirubin 1.7 mg/dL (0.3-1.0) H 01/22/17 05:30 AST 23 U/L (13-39) 01/22/17 05:30 ALT 19 U/L (7-52) 01/22/17 05:30 Alkaline Phosphatase 114 U/L (34-104) H 01/22/17 05:30 Creatine Kinase 404 U/L (30-223) H 01/21/17 22:32 CK-MB (CK-2) 3.7 ng/mL (0.6-6.3) 01/21/17 22:32 Troponin I 0.02 ng/mL (0.01-0.05) 01/21/17 22:32 B-Natriuretic Peptide 104.0 pg/mL (5.0-100.0) H 01/21/17 22:32 Total Protein 8.3 gm/dL (6.0-8.3) 01/22/17 05:30 Albumin 3.8 gm/dL (4.2-5.5) L 01/22/17 05:30 Globulin 4.5 gm/dL 01/22/17 05:30 Albumin/Globulin Ratio 0.8 (1.0-1.8) L 01/22/17 05:30 Triglycerides 113 mg/dL (<150) 01/21/17 22:32 Cholesterol 136 mg/dL (<200) 01/21/17 22:32 LDL Cholesterol Direct 88 mg/dL (75-193) 01/21/17 22:32 HDL Cholesterol 33 mg/dL (23-92) 01/21/17 22:32 Urine Source MIDSTREAM 01/21/17 22:30 Urine Color ORANGE 01/21/17 22:30 Urine Clarity CLOUDY (CLEAR) 01/21/17 22:30 Urine pH 5.5 (4.6 - 8.0) 01/21/17 22:30 Ur Specific [place] 1.025 (1.005-1.030) 01/21/17 22:30 Urine Protein 30 mg/dL (NEGATIVE) H 01/21/17 22:30 Urine Glucose (UA) NEGATIVE mg/dL (NEGATIVE) 01/21/17 22:30 Urine Ketones NEGATIVE mg/dL (NEGATIVE) 01/21/17 22:30 Urine Blood TRACE (NEGATIVE) 01/21/17 22:30 Urine Nitrate NEGATIVE (NEGATIVE) 01/21/17 22:30 Urine Bilirubin NEGATIVE (NEGATIVE) 01/21/17 22:30 Urine Urobilinogen 0.2 E.U./dL (0.2 - 1.0) 01/21/17 22:30 Ur Leukocyte Esterase NEGATIVE (NEGATIVE) 01/21/17 22:30 Urine RBC 2-5 /hpf (0-5) H 01/21/17 22:30 Urine WBC 0-2 /hpf (0-5) 01/21/17 22:30 Ur Epithelial Cells MODERATE /lpf (FEW) 01/21/17 22:30 Uric Acid Crystals MODERATE /hpf (NONE SEEN) 01/21/17 22:30 Urine Bacteria FEW /hpf (NONE SEEN) 01/21/17 22:30 Vancomycin Trough 12.6 ug/mL (10-20) 01/23/17 08:45 - Physical Exam Vitals and I&O: Vital Signs Temp 98.8 F 01/24/17 04:00 Pulse 118 01/24/17 08:38 Resp 16 01/24/17 08:38 BP 90/58 01/24/17 04:00 Pulse Ox 90 01/24/17 08:38 Intake & Output 01/23/17 01/24/17 01/24/17 18:59 06:59 18:59 Intake Total 350 350 Output Total 600 Balance 350 -250 Weight (lbs) 75.892 kg Intake: Intake, IV Amount 350 350 Piperacillin Sodium/ 100 100 Tazobact 3.375 gm In Sodium Chloride 0.9% 50 ml @ 100 mls/hr IV Q6HR [facility] Rx#:[id number] Vancomycin HCl 1 gm In 250 250 Sodium Chloride 0.9% 250 ml @ 165 mls/hr IV Q12H [facility] Rx#:[id number] Output: Urine 600 Active Medications: Current Medications Acetaminophen (Tylenol) 650 mg PO Q4HR PRN PRN Reason: Mild Pain/Headache/T above 101 Stop: 03/23/17 07:35 Acetaminophen (Tylenol 650mg Supp) 650 mg RC Q6H PRN PRN Reason: FEVER T ABOVE 101 Stop: 03/23/17 11:36 Last Admin: 01/23/17 12:02 Dose: 650 mg Ascorbic Acid (Vitamin C) 500 mg PO DAILY [facility] Stop: 03/23/17 08:59 Last Admin: 01/24/17 09:56 Dose: Not Given Aspirin (Aspirin Chewable) 81 mg PO DAILY [facility] Stop: 03/23/17 08:59 Last Admin: 01/24/17 09:57 Dose: Not Given Baclofen (Lioresal) 10 mg PO TID [facility] Stop: 03/23/17 08:59 Last Admin: 01/24/17 16:35 Dose: Not Given Carbidopa/Levodopa (Sinemet 25mg-100 Mg) 1 tab PO DAILY [facility] Stop: 03/23/17 08:59 Last Admin: 01/23/17 09:53 Dose: Not Given Entacapone (Comtan) 200 mg PO TID [facility] Stop: 03/23/17 08:59 Last Admin: 01/24/17 09:58 Dose: Not Given Gabapentin (Neurontin) 300 mg PO TID [facility] Stop: 03/23/17 08:59 Last Admin: 01/24/17 09:58 Dose: Not Given Piperacillin Sod/Tazobactam (Sod 3.375 gm/ Sodium Chloride) 50 mls @ 100 mls/ hr IV Q6HR [facility] Stop: 03/23/17 05:59 Last Admin: 01/24/17 12:32 Dose: 100 mls/hr Vancomycin HCl 1 gm/ Sodium (Chloride) 250 mls @ 165 mls/hr IV Q12H [facility] Stop: 03/23/17 09:59 Last Admin: 01/24/17 10:10 Dose: 155 mls/hr Dextrose/Sodium Chloride (D5-0.45ns) 1,000 mls @ 75 mls/hr IV .[id number] [facility] Stop: 03/25/17 06:29 Last Admin: 01/24/17 06:50 Dose: 75 mls/hr Insulin Aspart (Novolog Insulin Sliding Scale) 0 units SUBQ ACHS [facility] PRN Reason: Protocol Stop: 03/23/17 22:44 Last Admin: 01/24/17 12:04 Dose: 6 units Lactobacillus Rhamnosus (Culturelle) 1 each PO DAILY [facility] Stop: 03/24/17 08:59 Last Admin: 01/24/17 09:58 Dose: Not Given Metformin HCl (Glucophage) 500 mg PO BID [facility] Stop: 03/23/17 08:59 Last Admin: 01/24/17 09:59 Dose: Not Given Miscellaneous (Vancomycin Iv Per Pharmacy) 1 ea DAILY [facility] Stop: 03/23/17 08:59 Miscellaneous (Zosyn Iv Per Pharmacy) 1 [facility] DAILY PRN PRN Reason: Cough or Congestion Stop: 03/23/17 04:03 Miscellaneous (Probiotic Screen) 1 [facility] PRN PRN PRN Reason: PROTOCOL Stop: 03/23/17 11:14 Morphine Sulfate (Morphine) 1 mg IVP Q2HR PRN PRN Reason: Pain (Moderate) Stop: 03/23/17 15:34 Last Admin: 01/24/17 16:34 Dose: 1 mg Pramipexole Dihydrochloride (Mirapex) 0.75 mg PO TID [facility] PRN Reason: Protocol Stop: 03/23/17 08:59 Last Admin: 01/24/17 09:59 Dose: Not Given Tramadol HCl (Ultram) 50 mg PO TID PRN PRN Reason: Pain (Severe) Stop: 03/23/17 07:35 General: no acute distress, well developed, well nourished HEENT: atraumatic, normocephalic, PERRLA, EOMI, moist mucous membrane Neck: supple, no thyromegaly Cardiovascular: S1S2, regular Lungs: clear to auscultation bilaterally, clear to percussion Abdomen: soft, bowel sounds, no tender, no distended Extremities: no cyanosis, no clubbing Neurological: other (unresponsive.) Skin: other (sacral wound.) Infectious Disease Assmt/Plan - Assessment Assessment: 1.sepsis 2/2 aspiration. 2. aspiration pneumonia. 3. sacral wound. 4. dementia. 5. cad. - Plan Plan: Continue vancio and Zosyn. Hospice care was ordered. Nutritional Asmnt/Malnutr-PDOC - Dietary Evaluation Malnutrition Findings (Please click <Entered> for more info): Nutritional Asmnt/Malnutrition Start: 01/23/17 09: 29 Text: Status: Complete Freq: Document 01/23/17 09:29 VANESSA (Rec: 01/23/17 09:39 VANESSA [place] -FNS4) Nutritional Asmnt/Malnutrition Patient General Information Nutritional Screening Consult Diagnosis Pneumonia, leukocytosis, sepsis, UTI, dehydration, hypernatremia Pertinent Medical Hx/Surgical Hx HTN, DM, CAD, CVA/TIA, dyslipidemia, arthritis, dementia per MD notes Parkinson's per pt's sister Subjective Information RD received Nutrition Consult (glucose 334 upon admission). Pt was seen and assessed on . Pt was non-verbal; sister at bedside provided diet Hx. She stated that pt had not eaten since 01/19/17 at [facility] as he was not able to swallow and had been deteriorating. She stated that pt had been on a soft diet. Per RN, pt is DNR, and pt had requested no artificial means of nutrition when he was more alert [employer]. Plans for hospice eval per RN. Pt is not meeting optimal nutritional needs. Pt is not appropriate for nutrition education. Current Diet Order/ Nutrition Support N/A Patient / S.O Can't verbalize diet edu Pertinent Medications piperacillin/tazobactam/NaCl IV, vancomycin/NaCl IV Pertinent Labs Na 151 H, BG 277 H, BUN 62 H, HgA1c 7.2 H, ALB 3.8 L, Tbili 1.7 H, WBC 21.1 H, Cl 116 H, ALP 114 H Nutritional Hx/Data Height 1.73 m Height (Calculated Centimeters) 172.7 Current Weight (lbs) 60.781 kg Weight (Calculated Kilograms) 60.8 Weight (Calculated Grams) 94241.4 [place] Body Weight 154 lb, 70 kg % [place] Body Weight 87 Recent Weight Change Yes Weight Status Approriate GI Symptoms GI Symptoms None Difficult in: Chewing Swallowing Usual diet at home Soft foods Skin Integrity/Comment: Franco scale: 14; per RN, pt has a sacral wound Current %PO Negligible < 25% Estimated Nutritional Goals Calories/Kcals/Kg 30-35 kcal/kg IBW for sepsis, wound healing Kcals Calculated 9978-1984 kcal/day Protein g/k.5-2 gm/kg IBW for sepsis, wound healing Protein Calculated 105-140 gm/say Fluid: ml 2.1-2.5 L/day (1 ml/kcal/day for maintenance) Nutritional Problem 1. Problem Problem Inadequate nutritional intakes Etiology related to catabolism Signs/Symptoms: as evidenced by NPO greater than 3 days, and no current nutrition support to meet estimated nutritional requirements. Malnutrition Alert Food and Nutrition Intake (Severe) <50% est energy req 5days Body Fat Depletion (Non-Severe) Mild Depletion Muscle Mass (Non-Severe) Mild Depletion Is there a minimum of two criteria Yes selected? Query Text:Check all the applicable criteria. A minimum of two criteria are recommended for diagnosis of either severe or non-severe malnutrition. Malnutrition Related to Morbid Obesity Malnutrition related to morbid obesity No Intervention/Recommendation Comments * Consider nutrition support ( EN via NGT) if indicated Expected Outcomes/Goals Expected Outcomes/Goals - Monitor need for EN support w/ goal of pt meeting at least 25% of estimated nutritional needs, labs trending WNL, normal GI function, and skin integrity/wt maintenance within 2-3 days
[2017-01-24] MEDS ORDERED: Albumin 25% 25gm/100mL 50 GM/200 ML BTL IV ONE (22:54)
[2017-01-24] MEDS ORDERED: Dextrose 5% 1,000 ML IV SCH (23:23)
[2017-01-25 05:46] LABS: RED BLOOD COUNT 4.89 Mil/cmm (4.30-5.70); RED CELL DISTRIBUTION WIDTH 14.1 % (11.5-20.0)
[2017-01-25 05:49] LABS: HEMATOCRIT 41.5 % (41.0-60); HEMOGLOBIN 13.6 gm/dL (12-16); MEAN CELL VOLUME 84.9 fl (80-99); MEAN CORPUSCULAR HEMOGLOBIN 27.9 pg (26.0-30.0); MEAN CORPUSCULAR HGB CONC 32.9 pg (28.0-36.0); MEAN PLATELET VOLUME 11.4 fl
[2017-01-25 05:57] LABS: PLATELET COUNT 137 Th/cmm (150-400); WHITE BLOOD COUNT 14.2 Th/cmm (4.8-10.8)
[2017-01-25 06:09] LABS: BAND NEUTROPHILE 3 % (0-10); NEUTROPHILS 72 % (40-80); TOTAL CELLS COUNTED 100
[2017-01-25 06:10] LABS: ANION GAP 15.5 (7.0-16.0); BILIRUBIN,TOTAL 1.3 mg/dL (0.3-1.0); BUN/CREATININE RATIO 28.6; CALCIUM SERUM 9.4 mg/dL (8.6-10.3); CREATININE - SERUM 3.7 mg/dL (0.7-1.3); POTASSIUM SERUM 3.5 mEq/L (3.5-5.1)
[2017-01-25] MEDS: INSULIN ASPART SLIDING SCALE 100 UNITS/ML UNIT SUBQ SCH ×4 (06:58→21:38)
[2017-01-25] MEDS ORDERED: D5-0.45NS 1,000 ML IV SCH ×3 (07:38→16:30)
[2017-01-25] MEDS ORDERED: Dextrose 5% 1,000 ML IV SCH (07:41)
[2017-01-25] MEDS: Aspirin 81mg Chewable Tab PO SCH (09:17)
[2017-01-25] MEDS: Lactobacillus Rhamnosus 10 Billion CFU Capsule PO SCH (09:18)
[2017-01-25] MEDS: Multivitamin w/ Minerals Tab PO SCH (09:18)
--- NOTE | 2017-01-25 10:17 | General Progress Note ---
Subjective - Review of Systems Events since last encounter: no change no fever Objective - Results Result Diagrams: 01/25/17 05:21 01/25/17 05:21 Recent Labs: Laboratory Last Values WBC 14.2 Th/cmm (4.8-10.8) H 01/25/17 05:21 RBC 4.89 Mil/cmm (4.30-5.70) 01/25/17 05:21 Hgb 13.6 gm/dL (12-16) 01/25/17 05:21 Hct 41.5 % (41.0-60) 01/25/17 05:21 MCV 84.9 fl (80-99) 01/25/17 05:21 MCH 27.9 pg (26.0-30.0) 01/25/17 05:21 MCHC Differential 32.9 pg (28.0-36.0) 01/25/17 05:21 RDW 14.1 % (11.5-20.0) 01/25/17 05:21 Plt Count 137 Th/cmm (150-400) L D 01/25/17 05:21 MPV 11.4 fl 01/25/17 05:21 Band Neutrophils % 3 % (0-10) 01/25/17 05:21 Neutrophils (Manual) 72 % (40-80) 01/25/17 05:21 Lymphocytes 23 % (20-50) 01/25/17 05:21 Monocytes 2 % (2-10) 01/25/17 05:21 Platelet Estimate ADEQUATE (NORMAL) 01/24/17 04:56 Platelet Morphology PLATELET CLUMPS SEEN (NORMAL) 01/24/17 04:56 RBC Morph Micro Appear NORMAL (NORMAL) 01/24/17 04:56 PT 13.4 SECONDS (9.5-11.5) H 01/21/17 22:32 INR 1.27 (0.5-1.4) 01/21/17 22:32 PTT (Actin FS) 25.0 SECONDS (26.0-38.0) L 01/21/17 22:32 Sodium 167 mEq/L (136-145) H* 01/25/17 05:21 Potassium 3.5 mEq/L (3.5-5.1) 01/25/17 05:21 Chloride 133 mEq/L (98-107) H 01/25/17 05:21 Carbon Dioxide 22.0 mEq/L (21.0-31.0) 01/25/17 05:21 Anion Gap 15.5 (7.0-16.0) 01/25/17 05:21 BUN 106 mg/dL (7-25) H* 01/25/17 05:21 Creatinine 3.7 mg/dL (0.7-1.3) H 01/25/17 05:21 Est GFR ( Amer) 21.6 ml/min (>90) 01/25/17 05:21 Est GFR (Non-Af Amer) 17.8 ml/min 01/25/17 05:21 BUN/Creatinine Ratio 28.6 01/25/17 05:21 Glucose 294 mg/dL (70-105) H 01/25/17 05:21 POC Glucose 302 MG/DL (70 - 105) H 01/24/17 21:36 Hemoglobin A1c % 7.2 % (4.0-6.0) H 01/21/17 22:32 Whole Bld Lactic Acid 1.93 mmol/L (0.60-1.99) 01/21/17 22:32 Calcium 9.4 mg/dL (8.6-10.3) 01/25/17 05:21 Total Bilirubin 1.3 mg/dL (0.3-1.0) H 01/25/17 05:21 AST 60 U/L (13-39) H 01/25/17 05:21 ALT 38 U/L (7-52) 01/25/17 05:21 Alkaline Phosphatase 65 U/L (34-104) 01/25/17 05:21 Creatine Kinase 404 U/L (30-223) H 01/21/17 22:32 CK-MB (CK-2) 3.7 ng/mL (0.6-6.3) 01/21/17 22:32 Troponin I 0.02 ng/mL (0.01-0.05) 01/21/17 22:32 B-Natriuretic Peptide 104.0 pg/mL (5.0-100.0) H 01/21/17 22:32 Total Protein 7.4 gm/dL (6.0-8.3) 01/25/17 05:21 Albumin 3.7 gm/dL (4.2-5.5) L 01/25/17 05:21 Globulin 3.7 gm/dL 01/25/17 05:21 Albumin/Globulin Ratio 1.0 (1.0-1.8) 01/25/17 05:21 Triglycerides 113 mg/dL (<150) 01/21/17 22:32 Cholesterol 136 mg/dL (<200) 01/21/17 22:32 LDL Cholesterol Direct 88 mg/dL (75-193) 01/21/17 22:32 HDL Cholesterol 33 mg/dL (23-92) 01/21/17 22:32 Urine Source MIDSTREAM 01/21/17 22:30 Urine Color ORANGE 01/21/17 22:30 Urine Clarity CLOUDY (CLEAR) 01/21/17 22:30 Urine pH 5.5 (4.6 - 8.0) 01/21/17 22:30 Ur Specific [place] 1.025 (1.005-1.030) 01/21/17 22:30 Urine Protein 30 mg/dL (NEGATIVE) H 01/21/17 22:30 Urine Glucose (UA) NEGATIVE mg/dL (NEGATIVE) 01/21/17 22:30 Urine Ketones NEGATIVE mg/dL (NEGATIVE) 01/21/17 22:30 Urine Blood TRACE (NEGATIVE) 01/21/17 22:30 Urine Nitrate NEGATIVE (NEGATIVE) 01/21/17 22:30 Urine Bilirubin NEGATIVE (NEGATIVE) 01/21/17 22:30 Urine Urobilinogen 0.2 E.U./dL (0.2 - 1.0) 01/21/17 22:30 Ur Leukocyte Esterase NEGATIVE (NEGATIVE) 01/21/17 22:30 Urine RBC 2-5 /hpf (0-5) H 01/21/17 22:30 Urine WBC 0-2 /hpf (0-5) 01/21/17 22:30 Ur Epithelial Cells MODERATE /lpf (FEW) 01/21/17 22:30 Uric Acid Crystals MODERATE /hpf (NONE SEEN) 01/21/17 22:30 Urine Bacteria FEW /hpf (NONE SEEN) 01/21/17 22:30 Vancomycin Trough 42.8 ug/mL (10-20) H 01/25/17 09:00 - Physical Exam Vitals and I&O: Vital Signs Temp 99.2 F 01/25/17 04:00 Pulse 48 01/25/17 07:30 Resp 32 01/25/17 07:30 BP 90/47 01/25/17 04:00 Pulse Ox 100 01/25/17 07:30 Intake & Output 01/24/17 01/25/17 01/25/17 18:59 06:59 18:59 Intake Total 350 50 Output Total 350 Balance 0 50 Weight (lbs) 75.75 kg 75.75 kg Intake: Intake, IV Amount 350 50 Piperacillin Sodium/ 100 50 Tazobact 3.375 gm In Sodium Chloride 0.9% 50 ml @ 100 mls/hr IV Q6HR [facility] Rx#:[id number] Vancomycin HCl 1 gm In 250 Sodium Chloride 0.9% 250 ml @ 165 mls/hr IV Q12H [facility] Rx#:[id number] Output: Urine 350 Other: Stool Characteristics Soft Soft Active Medications: Current Medications Acetaminophen (Tylenol) 650 mg PO Q4HR PRN PRN Reason: Mild Pain/Headache/T above 101 Stop: 03/23/17 07:35 Acetaminophen (Tylenol 650mg Supp) 650 mg RC Q6H PRN PRN Reason: FEVER T ABOVE 101 Stop: 03/23/17 11:36 Last Admin: 01/23/17 12:02 Dose: 650 mg Ascorbic Acid (Vitamin C) 500 mg PO DAILY [facility] Stop: 03/23/17 08:59 Last Admin: 01/25/17 09:17 Dose: Not Given Aspirin (Aspirin Chewable) 81 mg PO DAILY [facility] Stop: 03/23/17 08:59 Last Admin: 01/25/17 09:17 Dose: Not Given Baclofen (Lioresal) 10 mg PO TID [facility] Stop: 03/23/17 08:59 Last Admin: 01/25/17 09:17 Dose: Not Given Carbidopa/Levodopa (Sinemet 25mg-100 Mg) 1 tab PO DAILY [facility] Stop: 03/23/17 08:59 Last Admin: 01/25/17 09:17 Dose: Not Given Entacapone (Comtan) 200 mg PO TID [facility] Stop: 03/23/17 08:59 Last Admin: 01/25/17 09:18 Dose: Not Given Gabapentin (Neurontin) 300 mg PO TID [facility] Stop: 03/23/17 08:59 Last Admin: 01/25/17 09:18 Dose: Not Given Piperacillin Sod/Tazobactam (Sod 3.375 gm/ Sodium Chloride) 50 mls @ 100 mls/ hr IV Q6HR [facility] Stop: 03/23/17 05:59 Last Admin: 01/25/17 05:41 Dose: 100 mls/hr Dextrose (D5w) 1,000 mls @ 175 mls/hr IV .Q5H43M [facility] Stop: 03/26/17 07:40 Dextrose/Sodium Chloride (D5-0.45ns) 1,000 mls @ 0 mls/hr IV .Q0M [facility]; Wide Open PRN Reason: Protocol Stop: 01/25/17 12:37 Insulin Aspart (Novolog Insulin Sliding Scale) 0 units SUBQ ACHS [facility] PRN Reason: Protocol Stop: 03/23/17 22:44 Last Admin: 01/25/17 06:58 Dose: 6 units Lactobacillus Rhamnosus (Culturelle) 1 each PO DAILY [facility] Stop: 03/24/17 08:59 Last Admin: 01/25/17 09:18 Dose: Not Given Metformin HCl (Glucophage) 500 mg PO BID [facility] Stop: 03/23/17 08:59 Last Admin: 01/25/17 09:18 Dose: Not Given Miscellaneous (Vancomycin Iv Per Pharmacy) 1 ea [facility] DAILY [facility] Stop: 03/23/17 08:59 Miscellaneous (Zosyn Iv Per Pharmacy) 1 ea DAILY PRN PRN Reason: Cough or Congestion Stop: 03/23/17 04:03 Miscellaneous (Probiotic Screen) 1 ea PRN PRN PRN Reason: PROTOCOL Stop: 03/23/17 11:14 Morphine Sulfate (Morphine) 1 mg IVP Q2HR PRN PRN Reason: Pain (Moderate) Stop: 03/23/17 15:34 Last Admin: 01/24/17 16:34 Dose: 1 mg Pramipexole Dihydrochloride (Mirapex) 0.75 mg PO TID [facility] PRN Reason: Protocol Stop: 03/23/17 08:59 Last Admin: 01/25/17 09:18 Dose: Not Given Tramadol HCl (Ultram) 50 mg PO TID PRN PRN Reason: Pain (Severe) Stop: 03/23/17 07:35 General: No acute distress HEENT: Atraumatic, PERRLA Neck: Supple Cardiovascular: Regular rate Abdomen: Bowel sounds Extremities: Clubbing Neurological: Normal gait Assessment/Plan - Problem List Patient Problems: All Active Problems Aspiration pneumonia (Acute) J69.0 CAD (coronary artery disease) (Acute) I25.10 Dementia (Acute) F03.90 Sacral wound (Acute) S31.000A Sepsis (Acute) - Plan Plan: cpm Nutritional Asmnt/Malnutr-PDOC - Dietary Evaluation Malnutrition Findings (Please click <Entered> for more info): Nutritional Asmnt/Malnutrition Start: 01/23/17 09: 29 Text: Status: Complete Freq: Document 01/23/17 09:29 VANESSA (Rec: 01/23/17 09:39 [facility] Nutritional Asmnt/Malnutrition Patient General Information Nutritional Screening Consult Diagnosis Pneumonia, leukocytosis, sepsis, UTI, dehydration, hypernatremia Pertinent Medical Hx/Surgical Hx HTN, DM, CAD, CVA/TIA, dyslipidemia, arthritis, dementia per MD notes Parkinson's per pt's sister Subjective Information RD received Nutrition Consult (glucose 334 upon admission). Pt was seen and assessed on . Pt was non-verbal; sister at bedside provided diet Hx. She stated that pt had not eaten since 01/19/[address] [facility] as he was not able to swallow and had been deteriorating. She stated that pt had been on a soft diet. Per RN, pt is DNR, and pt had requested no artificial means of nutrition when he was more alert [employer]. Plans for hospice eval per RN. Pt is not meeting optimal nutritional needs. Pt is not appropriate for nutrition education. Current Diet Order/ Nutrition Support N/A Patient / S.O Can't verbalize diet edu Pertinent Medications piperacillin/tazobactam/NaCl IV, vancomycin/NaCl IV Pertinent Labs Na 151 H, BG 277 H, BUN 62 H, HgA1c 7.2 H, ALB 3.8 L, Tbili 1.7 H, WBC 21.1 H, Cl 116 H, ALP 114 H Nutritional Hx/Data Height 1.73 m Height (Calculated Centimeters) 172.7 Current Weight (lbs) 60.781 kg Weight (Calculated Kilograms) 60.8 Weight (Calculated Grams) 33422.4 [place] Body Weight 154 lb, 70 kg % [place] Body Weight 87 Recent Weight Change Yes Weight Status Approriate GI Symptoms GI Symptoms None Difficult in: Chewing Swallowing Usual diet at home Soft foods Skin Integrity/Comment: Franco scale: 14; per RN, pt has a sacral wound Current %PO Negligible < 25% Estimated Nutritional Goals Calories/Kcals/Kg 30-35 kcal/kg IBW for sepsis, wound healing Kcals Calculated 5829-8693 kcal/day Protein g/k.5-2 gm/kg IBW for sepsis, wound healing Protein Calculated 105-140 gm/say Fluid: ml 2.1-2.5 L/day (1 ml/kcal/day for maintenance) Nutritional Problem 1. Problem Problem Inadequate nutritional intakes Etiology related to catabolism Signs/Symptoms: as evidenced by NPO greater than 3 days, and no current nutrition support to meet estimated nutritional requirements. Malnutrition Alert Food and Nutrition Intake (Severe) <50% est energy req 5days Body Fat Depletion (Non-Severe) Mild Depletion Muscle Mass (Non-Severe) Mild Depletion Is there a minimum of two criteria Yes selected? Query Text:Check all the applicable criteria. A minimum of two criteria are recommended for diagnosis of either severe or non-severe malnutrition. Malnutrition Related to Morbid Obesity Malnutrition related to morbid obesity No Intervention/Recommendation Comments * Consider nutrition support ( EN via NGT) if indicated Expected Outcomes/Goals Expected Outcomes/Goals - Monitor need for EN support w/ goal of pt meeting at least 25% of estimated nutritional needs, labs trending WNL, normal GI function, and skin integrity/wt maintenance within 2-3 days
[2017-01-25] MEDS ORDERED: INSULIN ASPART SLIDING SCALE 100 UNITS/ML UNIT SUBQ SCH (21:00)
[2017-01-25] MEDS ORDERED: Sodium Chloride 0.45% 1,000 ML IV SCH (21:08)
--- NOTE | 2017-01-25 22:24 | Consultation ---
DATE OF CONSULTATION: HISTORY OF PRESENT ILLNESS: This is a 61-year-old patient, who was admitted to the hospital through the emergency room for 2 days of fever, cough, congestion, neck pain, and shortness of breath. On ER evaluation, temperature is 97.5, heart rate of 116, respiratory rate of 33, blood pressure is 117/79. Findings in the Emergency Room, the presence of white blood cell count of 24,000, platelet count of 372, sodium was originally 148 from prior studies with a BUN of 57, creatinine of 1.0, but subsequent blood studies on this patient showed sodium of 163, chloride of 131, BUN of 53, creatinine of 1.5 from a prior of 1.6 ____. His potassium is 3.5, chloride of 131, CO2 of 21. He is lethargic, not interactive, although awake, opens his eyes, minimal stimulation, minimal reaction to pain. PHYSICAL EXAMINATION: VITAL SIGNS: His blood pressure now is 98/37, heart rate of 47, and respiratory rate of 13. GENERAL: Awake and alert. CHEST: Clear to auscultation. HEART: Regular sinus. Recorded to have some degree of bradycardia, although the patient has a pacemaker in place. ABDOMEN: Soft. Bowel sounds are present. EXTREMITIES: There is no edema. IMPRESSION: Severe dehydration, azotemia secondary to hypovolemia, diabetes mellitus, and septicemia suspected with the white blood cell count of 24,000. PLAN: Hypertonic fluid infusion has been requested. He is covered currently with antibiotics empirically because of the presence of severe leukocytosis that this patient has. [facility]# [id number]
[2017-01-26 05:22] LABS: ANION GAP 12.8 (7.0-16.0); BUN/CREATININE RATIO 27.6; CALCIUM SERUM 8.3 mg/dL (8.6-10.3); CARBON DIOXIDE 20.4 mEq/L (21.0-31.0); POTASSIUM SERUM 3.2 mEq/L (3.5-5.1)
[2017-01-26 05:31] LABS: CREATININE - SERUM 4.6 mg/dL (0.7-1.3)
[2017-01-26 09:17] LABS: % BASOPHILS 0.1 % (0.0-2.0); % EOSINOPHILS 0.3 % (0.0-5.0); % LYMPHOCYTES 11.5 % (20.0-50.0); % MONOCYTES 2.6 % (2.0-10.0); % NEUTROPHILS 85.5 % (40.0-80.0); MEAN CELL VOLUME 85.9 fl (80-99); MEAN CORPUSCULAR HEMOGLOBIN 27.8 pg (26.0-30.0); MEAN CORPUSCULAR HGB CONC 32.3 pg (28.0-36.0); MEAN PLATELET VOLUME 10.5 fl; NEUTROPHILE ABSOLUTE 10.9 Th/cmm (1.8-8.0); RED BLOOD COUNT 3.89 Mil/cmm (4.30-5.70); RED CELL DISTRIBUTION WIDTH 14.5 % (11.5-20.0)
[2017-01-26 09:59] LABS: HEMATOCRIT 33.4 % (41.0-60); HEMOGLOBIN 10.8 gm/dL (12-16); WHITE BLOOD COUNT 12.6 Th/cmm (4.8-10.8)
[2017-01-26 10:00] LABS: PLATELET COUNT 78 Th/cmm (150-400)
[2017-01-26] MEDS: INSULIN ASPART SLIDING SCALE 100 UNITS/ML UNIT SUBQ SCH ×4 (10:05→21:56)
[2017-01-26] MEDS: Lactobacillus Rhamnosus 10 Billion CFU Capsule PO SCH (10:06)
[2017-01-26] MEDS: Aspirin 81mg Chewable Tab PO SCH (10:06)
[2017-01-26] MEDS: Multivitamin w/ Minerals Tab PO SCH (10:07)
--- NOTE | 2017-01-26 12:37 | General Progress Note ---
Subjective - Review of Systems Service Date: 01/26/17 Subjective: awake, weak, comfortable Objective - Results Result Diagrams: 01/26/17 04:20 01/26/17 04:20 Recent Labs: Laboratory Last Values WBC 12.6 Th/cmm (4.8-10.8) H 01/26/17 04:20 RBC 3.89 Mil/cmm (4.30-5.70) L 01/26/17 04:20 Hgb 10.8 gm/dL (12-16) L D 01/26/17 04:20 Hct 33.4 % (41.0-60) L D 01/26/17 04:20 MCV 85.9 fl (80-99) 01/26/17 04:20 MCH 27.8 pg (26.0-30.0) 01/26/17 04:20 MCHC Differential 32.3 pg (28.0-36.0) 01/26/17 04:20 RDW 14.5 % (11.5-20.0) 01/26/17 04:20 Plt Count 78 Th/cmm (150-400) L D 01/26/17 04:20 MPV 10.5 fl 01/26/17 04:20 Neutrophils % 85.5 % (40.0-80.0) H 01/26/17 04:20 Band Neutrophils % 3 % (0-10) 01/25/17 05:21 Lymphocytes % 11.5 % (20.0-50.0) L 01/26/17 04:20 Monocytes % 2.6 % (2.0-10.0) 01/26/17 04:20 Eosinophils % 0.3 % (0.0-5.0) 01/26/17 04:20 Basophils % 0.1 % (0.0-2.0) 01/26/17 04:20 Neutrophils (Manual) 72 % (40-80) 01/25/17 05:21 Lymphocytes 23 % (20-50) 01/25/17 05:21 Monocytes 2 % (2-10) 01/25/17 05:21 Platelet Estimate ADEQUATE (NORMAL) 01/24/17 04:56 Platelet Morphology PLATELET CLUMPS SEEN (NORMAL) 01/24/17 04:56 RBC Morph Micro Appear NORMAL (NORMAL) 01/24/17 04:56 PT 13.4 SECONDS (9.5-11.5) H 01/21/17 22:32 INR 1.27 (0.5-1.4) 01/21/17 22:32 PTT (Actin FS) 25.0 SECONDS (26.0-38.0) L 01/21/17 22:32 Sodium 162 mEq/L (136-145) H* 01/26/17 04:20 Potassium 3.2 mEq/L (3.5-5.1) L 01/26/17 04:20 Chloride 132 mEq/L (98-107) H 01/26/17 04:20 Carbon Dioxide 20.4 mEq/L (21.0-31.0) L 01/26/17 04:20 Anion Gap 12.8 (7.0-16.0) 01/26/17 04:20 BUN 127 mg/dL (7-25) H* 01/26/17 04:20 Creatinine 4.6 mg/dL (0.7-1.3) H* 01/26/17 04:20 Est GFR ( Amer) 16.8 ml/min (>90) 01/26/17 04:20 Est GFR (Non-Af Amer) 13.9 ml/min 01/26/17 04:20 BUN/Creatinine Ratio 27.6 01/26/17 04:20 Glucose 313 mg/dL (70-105) H 01/26/17 04:20 POC Glucose 230 MG/DL (70 - 105) H 01/26/17 11:14 Hemoglobin A1c % 7.2 % (4.0-6.0) H 01/21/17 22:32 Whole Bld Lactic Acid 1.93 mmol/L (0.60-1.99) 01/21/17 22:32 Calcium 8.3 mg/dL (8.6-10.3) L 01/26/17 04:20 Total Bilirubin 1.3 mg/dL (0.3-1.0) H 01/25/17 05:21 AST 60 U/L (13-39) H 01/25/17 05:21 ALT 38 U/L (7-52) 01/25/17 05:21 Alkaline Phosphatase 65 U/L (34-104) 01/25/17 05:21 Creatine Kinase 404 U/L (30-223) H 01/21/17 22:32 CK-MB (CK-2) 3.7 ng/mL (0.6-6.3) 01/21/17 22:32 Troponin I 0.02 ng/mL (0.01-0.05) 01/21/17 22:32 B-Natriuretic Peptide 104.0 pg/mL (5.0-100.0) H 01/21/17 22:32 Total Protein 7.4 gm/dL (6.0-8.3) 01/25/17 05:21 Albumin 3.7 gm/dL (4.2-5.5) L 01/25/17 05:21 Globulin 3.7 gm/dL 01/25/17 05:21 Albumin/Globulin Ratio 1.0 (1.0-1.8) 01/25/17 05:21 Triglycerides 113 mg/dL (<150) 01/21/17 22:32 Cholesterol 136 mg/dL (<200) 01/21/17 22:32 LDL Cholesterol Direct 88 mg/dL (75-193) 01/21/17 22:32 HDL Cholesterol 33 mg/dL (23-92) 01/21/17 22:32 Urine Source MIDSTREAM 01/21/17 22:30 Urine Color ORANGE 01/21/17 22:30 Urine Clarity CLOUDY (CLEAR) 01/21/17 22:30 Urine pH 5.5 (4.6 - 8.0) 01/21/17 22:30 Ur Specific [place] 1.025 (1.005-1.030) 01/21/17 22:30 Urine Protein 30 mg/dL (NEGATIVE) H 01/21/17 22:30 Urine Glucose (UA) NEGATIVE mg/dL (NEGATIVE) 01/21/17 22:30 Urine Ketones NEGATIVE mg/dL (NEGATIVE) 01/21/17 22:30 Urine Blood TRACE (NEGATIVE) 01/21/17 22:30 Urine Nitrate NEGATIVE (NEGATIVE) 01/21/17 22:30 Urine Bilirubin NEGATIVE (NEGATIVE) 01/21/17 22:30 Urine Urobilinogen 0.2 E.U./dL (0.2 - 1.0) 01/21/17 22:30 Ur Leukocyte Esterase NEGATIVE (NEGATIVE) 01/21/17 22:30 Urine RBC 2-5 /hpf (0-5) H 01/21/17 22:30 Urine WBC 0-2 /hpf (0-5) 01/21/17 22:30 Ur Epithelial Cells MODERATE /lpf (FEW) 01/21/17 22:30 Uric Acid Crystals MODERATE /hpf (NONE SEEN) 01/21/17 22:30 Urine Bacteria FEW /hpf (NONE SEEN) 01/21/17 22:30 Vancomycin Trough 42.8 ug/mL (10-20) H 01/25/17 09:00 Random Vancomycin 24.3 ug/mL (5.0-40.0) 01/26/17 04:20 - Physical Exam Vitals and I&O: Vital Signs Temp 97.6 F 01/26/17 12:00 Pulse 84 01/26/17 12:00 Resp 19 01/26/17 12:00 BP 84/48 01/26/17 12:00 Pulse Ox 97 01/26/17 12:00 Intake & Output 01/25/17 01/26/17 01/26/17 18:59 06:59 18:59 Intake Total 889.583 100 Output Total 300 Balance 589.583 100 Weight (lbs) 75.75 kg 64.319 kg Intake: Intake, IV Amount 889.583 100 D5-0.45NS 1,000 ml @ 250 300 mls/hr IV .Q4H [facility] Rx#: [id number] Dextrose 5% 1,000 ml @ 539.583 175 mls/hr IV .[id number] [facility] Rx#:[id number] Piperacillin Sodium/ 50 100 Tazobact 3.375 gm In Sodium Chloride 0.9% 50 ml @ 100 mls/hr IV Q6HR [facility] Rx#:[id number] Output: Urine 300 Other: # Bowel Movements 0 Stool Characteristics Soft Soft Soft Active Medications: Current Medications Acetaminophen (Tylenol) 650 mg PO Q4HR PRN PRN Reason: Mild Pain/Headache/T above 101 Stop: 03/23/17 07:35 Acetaminophen (Tylenol 650mg Supp) 650 mg RC Q6H PRN PRN Reason: FEVER T ABOVE 101 Stop: 03/23/17 11:36 Last Admin: 01/23/17 12:02 Dose: 650 mg Ascorbic Acid (Vitamin C) 500 mg PO DAILY [facility] Stop: 03/23/17 08:59 Last Admin: 01/26/17 10:06 Dose: Not Given Aspirin (Aspirin Chewable) 81 mg PO DAILY [facility] Stop: 03/23/17 08:59 Last Admin: 01/26/17 10:06 Dose: Not Given Baclofen (Lioresal) 10 mg PO TID [facility] Stop: 03/23/17 08:59 Last Admin: 01/26/17 10:06 Dose: Not Given Carbidopa/Levodopa (Sinemet 25mg-100 Mg) 1 tab PO DAILY [facility] Stop: 03/23/17 08:59 Last Admin: 01/26/17 10:06 Dose: Not Given Entacapone (Comtan) 200 mg PO TID [facility] Stop: 03/23/17 08:59 Last Admin: 01/26/17 10:06 Dose: Not Given Gabapentin (Neurontin) 300 mg PO TID [facility] Stop: 03/23/17 08:59 Last Admin: 01/26/17 10:06 Dose: Not Given Piperacillin Sod/Tazobactam (Sod 3.375 gm/ Sodium Chloride) 50 mls @ 100 mls/ hr IV Q6HR [facility] Stop: 03/26/17 14:59 Last Admin: 01/26/17 06:00 Dose: 100 mls/hr Sodium Chloride (Nacl 0.45%) 1,000 mls @ 75 mls/hr IV .[id number] [facility] Stop: 03/26/17 21:07 Last Admin: 01/25/17 21:22 Dose: 75 mls/hr Vancomycin HCl 1 gm/ Sodium (Chloride) 250 mls @ 165 mls/hr IV ONCE ONE Stop: 01/26/17 16:30 Insulin Aspart (Novolog Insulin Sliding Scale) 0 units SUBQ ACHS [facility] PRN Reason: Protocol Stop: 03/23/17 22:44 Last Admin: 01/26/17 12:07 Dose: Not Given Lactobacillus Rhamnosus (Culturelle) 1 each PO DAILY [facility] Stop: 03/24/17 08:59 Last Admin: 01/26/17 10:06 Dose: Not Given Metformin HCl (Glucophage) 500 mg PO BID [facility] Stop: 03/23/17 08:59 Last Admin: 01/26/17 10:06 Dose: Not Given Miscellaneous (Vancomycin Iv Per Pharmacy) 1 ea MC DAILY [facility] Stop: 03/23/17 08:59 Miscellaneous (Zosyn Iv Per Pharmacy) 1 ea MC DAILY PRN PRN Reason: Cough or Congestion Stop: 03/23/17 04:03 Miscellaneous (Probiotic Screen) 1 ea MC PRN PRN PRN Reason: PROTOCOL Stop: 03/23/17 11:14 Morphine Sulfate (Morphine) 1 mg IVP Q2HR PRN PRN Reason: Pain (Moderate) Stop: 03/23/17 15:34 Last Admin: 01/24/17 16:34 Dose: 1 mg Pramipexole Dihydrochloride (Mirapex) 0.75 mg PO TID [facility] PRN Reason: Protocol Stop: 03/23/17 08:59 Last Admin: 01/26/17 10:07 Dose: Not Given Tramadol HCl (Ultram) 50 mg PO TID PRN PRN Reason: Pain (Severe) Stop: 03/23/17 07:35 General: No acute distress HEENT: Atraumatic, PERRLA Neck: Supple Cardiovascular: Regular rate, Normal S1, Normal S2 Abdomen: Bowel sounds, Soft Extremities: Clubbing Neurological: Normal gait Skin: no Rash Psych/Mental Status: Mood NL Assessment/Plan - Problem List Patient Problems: All Active Problems Aspiration pneumonia (Acute) J69.0 CAD (coronary artery disease) (Acute) I25.10 Dementia (Acute) F03.90 Sacral wound (Acute) S31.000A Sepsis (Acute) - Assessment Assessment: Hypernatremia Pre renal azotemia Dehydration Type 2 DM Asp. Pna CAD Sacral Wound - Plan Plan: Lab - Result Diagrams 01/26/17 04:20 01/26/17 04:20 Current Medications Acetaminophen (Tylenol) 650 mg PO Q4HR PRN PRN Reason: Mild Pain/Headache/T above 101 Stop: 03/23/17 07:35 Acetaminophen (Tylenol 650mg Supp) 650 mg RC Q6H PRN PRN Reason: FEVER T ABOVE 101 Stop: 03/23/17 11:36 Last Admin: 01/23/17 12:02 Dose: 650 mg Ascorbic Acid (Vitamin C) 500 mg PO DAILY [facility] Stop: 03/23/17 08:59 Last Admin: 01/26/17 10:06 Dose: Not Given Aspirin (Aspirin Chewable) 81 mg PO DAILY [facility] Stop: 03/23/17 08:59 Last Admin: 01/26/17 10:06 Dose: Not Given Baclofen (Lioresal) 10 mg PO TID [facility] Stop: 03/23/17 08:59 Last Admin: 01/26/17 10:06 Dose: Not Given Carbidopa/Levodopa (Sinemet 25mg-100 Mg) 1 tab PO DAILY [facility] Stop: 03/23/17 08:59 Last Admin: 01/26/17 10:06 Dose: Not Given Entacapone (Comtan) 200 mg PO TID [facility] Stop: 03/23/17 08:59 Last Admin: 01/26/17 10:06 Dose: Not Given Gabapentin (Neurontin) 300 mg PO TID [facility] Stop: 03/23/17 08:59 Last Admin: 01/26/17 10:06 Dose: Not Given Piperacillin Sod/Tazobactam (Sod 3.375 gm/ Sodium Chloride) 50 mls @ 100 mls/ hr IV Q6HR [facility] Stop: 03/26/17 14:59 Last Admin: 01/26/17 06:00 Dose: 100 mls/hr Sodium Chloride (Nacl 0.45%) 1,000 mls @ 75 mls/hr IV .[id number] [facility] Stop: 03/26/17 21:07 Last Admin: 01/25/17 21:22 Dose: 75 mls/hr Vancomycin HCl 1 gm/ Sodium (Chloride) 250 mls @ 165 mls/hr IV ONCE ONE Stop: 01/26/17 16:30 Insulin Aspart (Novolog Insulin Sliding Scale) 0 units SUBQ ACHS [facility] PRN Reason: Protocol Stop: 03/23/17 22:44 Last Admin: 01/26/17 12:07 Dose: Not Given Lactobacillus Rhamnosus (Culturelle) 1 each PO DAILY [facility] Stop: 03/24/17 08:59 Last Admin: 01/26/17 10:06 Dose: Not Given Metformin HCl (Glucophage) 500 mg PO BID [facility] Stop: 03/23/17 08:59 Last Admin: 01/26/17 10:06 Dose: Not Given Miscellaneous (Vancomycin Iv Per Pharmacy) 1 ea MC DAILY [facility] Stop: 03/23/17 08:59 Miscellaneous (Zosyn Iv Per Pharmacy) 1 ea DAILY PRN PRN Reason: Cough or Congestion Stop: 03/23/17 04:03 Miscellaneous (Probiotic Screen) 1 ea PRN PRN PRN Reason: PROTOCOL Stop: 03/23/17 11:14 Morphine Sulfate (Morphine) 1 mg IVP Q2HR PRN PRN Reason: Pain (Moderate) Stop: 03/23/17 15:34 Last Admin: 01/24/17 16:34 Dose: 1 mg Pramipexole Dihydrochloride (Mirapex) 0.75 mg PO TID [facility] PRN Reason: Protocol Stop: 03/23/17 08:59 Last Admin: 01/26/17 10:07 Dose: Not Given Tramadol HCl (Ultram) 50 mg PO TID PRN PRN Reason: Pain (Severe) Stop: 03/23/17 07:35 Lab - Result Diagrams 01/26/17 04:20 01/26/17 04:20 Increase IVF due to hypotension, expect Na to increase for now replace K add colloids for bp support f/u electrolytes, cbc Nutritional Asmnt/Malnutr-PDOC - Dietary Evaluation Malnutrition Findings (Please click <Entered> for more info): Nutritional Asmnt/Malnutrition Start: 01/23/17 09: 29 Text: Status: Complete Freq: Document 01/23/17 09:29 VANESSA (Rec: 01/23/17 09:39 [email or web address] -[id number]) Nutritional Asmnt/Malnutrition Patient General Information Nutritional Screening Consult Diagnosis Pneumonia, leukocytosis, sepsis, UTI, dehydration, hypernatremia Pertinent Medical Hx/Surgical Hx HTN, DM, CAD, CVA/TIA, dyslipidemia, arthritis, dementia per MD notes Parkinson's per pt's sister Subjective Information RD received Nutrition Consult (glucose 334 upon admission). Pt was seen and assessed on . Pt was non-verbal; sister at bedside provided diet Hx. She stated that pt had not eaten since 01/19/17 at [facility] as he was not able to swallow and had been deteriorating. She stated that pt had been on a soft diet. Per RN, pt is DNR, and pt had requested no artificial means of nutrition when he was more alert BLENDER. Plans for hospice eval per RN. Pt is not meeting optimal nutritional needs. Pt is not appropriate for nutrition education. Current Diet Order/ Nutrition Support N/A Patient / S.O Can't verbalize diet edu Pertinent Medications piperacillin/tazobactam/NaCl IV, vancomycin/NaCl IV Pertinent Labs Na 151 H, BG 277 H, BUN 62 H, HgA1c 7.2 H, ALB 3.8 L, Tbili 1.7 H, WBC 21.1 H, Cl 116 H, ALP 114 H Nutritional Hx/Data Height 1.73 m Height (Calculated Centimeters) 172.7 Current Weight (lbs) 60.781 kg Weight (Calculated Kilograms) 60.8 Weight (Calculated Grams) 46778.4 [place] Body Weight 154 lb, 70 kg % [place] Body Weight 87 Recent Weight Change Yes Weight Status Approriate GI Symptoms GI Symptoms None Difficult in: Chewing Swallowing Usual diet at home Soft foods Skin Integrity/Comment: Franco scale: 14; per RN, pt has a sacral wound Current %PO Negligible < 25% Estimated Nutritional Goals Calories/Kcals/Kg 30-35 kcal/kg IBW for sepsis, wound healing Kcals Calculated 5258-0231 kcal/day Protein g/k.5-2 gm/kg IBW for sepsis, wound healing Protein Calculated 105-140 gm/say Fluid: ml 2.1-2.5 L/day (1 ml/kcal/day for maintenance) Nutritional Problem 1. Problem Problem Inadequate nutritional intakes Etiology related to catabolism Signs/Symptoms: as evidenced by NPO greater than 3 days, and no current nutrition support to meet estimated nutritional requirements. Malnutrition Alert Food and Nutrition Intake (Severe) <50% est energy req 5days Body Fat Depletion (Non-Severe) Mild Depletion Muscle Mass (Non-Severe) Mild Depletion Is there a minimum of two criteria Yes selected? Query Text:Check all the applicable criteria. A minimum of two criteria are recommended for diagnosis of either severe or non-severe malnutrition. Malnutrition Related to Morbid Obesity Malnutrition related to morbid obesity No Intervention/Recommendation Comments * Consider nutrition support ( EN via NGT) if indicated Expected Outcomes/Goals Expected Outcomes/Goals - Monitor need for EN support w/ goal of pt meeting at least 25% of estimated nutritional needs, labs trending WNL, normal GI function, and skin integrity/wt maintenance within 2-3 days
[2017-01-26] MEDS: Morphine Sulfate 2 mg/mL 1mL Syr IVP PRN (12:44)
[2017-01-26] MEDS ORDERED: Albumin 25% 25gm/100mL 25 GM/100 ML BTL IV PRN ×2 (13:00)
--- NOTE | 2017-01-26 21:50 | Internal Medicine Prog Note ---
Internal Medicine Subjective - Subjective Service Date: 01/26/17 Patient is:: awake Per staff patient has:: no adverse event, tolerating meds Internal Medicine Objective - Results Result Diagrams: 01/26/17 04:20 01/26/17 04:20 Recent Labs: Laboratory Last Values WBC 12.6 Th/cmm (4.8-10.8) H 01/26/17 04:20 RBC 3.89 Mil/cmm (4.30-5.70) L 01/26/17 04:20 Hgb 10.8 gm/dL (12-16) L D 01/26/17 04:20 Hct 33.4 % (41.0-60) L D 01/26/17 04:20 MCV 85.9 fl (80-99) 01/26/17 04:20 MCH 27.8 pg (26.0-30.0) 01/26/17 04:20 MCHC Differential 32.3 pg (28.0-36.0) 01/26/17 04:20 RDW 14.5 % (11.5-20.0) 01/26/17 04:20 Plt Count 78 Th/cmm (150-400) L D 01/26/17 04:20 MPV 10.5 fl 01/26/17 04:20 Neutrophils % 85.5 % (40.0-80.0) H 01/26/17 04:20 Band Neutrophils % 3 % (0-10) 01/25/17 05:21 Lymphocytes % 11.5 % (20.0-50.0) L 01/26/17 04:20 Monocytes % 2.6 % (2.0-10.0) 01/26/17 04:20 Eosinophils % 0.3 % (0.0-5.0) 01/26/17 04:20 Basophils % 0.1 % (0.0-2.0) 01/26/17 04:20 Neutrophils (Manual) 72 % (40-80) 01/25/17 05:21 Lymphocytes 23 % (20-50) 01/25/17 05:21 Monocytes 2 % (2-10) 01/25/17 05:21 Platelet Estimate ADEQUATE (NORMAL) 01/24/17 04:56 Platelet Morphology PLATELET CLUMPS SEEN (NORMAL) 01/24/17 04:56 RBC Morph Micro Appear NORMAL (NORMAL) 01/24/17 04:56 PT 13.4 SECONDS (9.5-11.5) H 01/21/17 22:32 INR 1.27 (0.5-1.4) 01/21/17 22:32 PTT (Actin FS) 25.0 SECONDS (26.0-38.0) L 01/21/17 22:32 Sodium 162 mEq/L (136-145) H* 01/26/17 04:20 Potassium 3.2 mEq/L (3.5-5.1) L 01/26/17 04:20 Chloride 132 mEq/L (98-107) H 01/26/17 04:20 Carbon Dioxide 20.4 mEq/L (21.0-31.0) L 01/26/17 04:20 Anion Gap 12.8 (7.0-16.0) 01/26/17 04:20 BUN 127 mg/dL (7-25) H* 01/26/17 04:20 Creatinine 4.6 mg/dL (0.7-1.3) H* 01/26/17 04:20 Est GFR ( Amer) 16.8 ml/min (>90) 01/26/17 04:20 Est GFR (Non-Af Amer) 13.9 ml/min 01/26/17 04:20 BUN/Creatinine Ratio 27.6 01/26/17 04:20 Glucose 313 mg/dL (70-105) H 01/26/17 04:20 POC Glucose 220 MG/DL (70 - 105) H 01/26/17 20:59 Hemoglobin A1c % 7.2 % (4.0-6.0) H 01/21/17 22:32 Whole Bld Lactic Acid 1.93 mmol/L (0.60-1.99) 01/21/17 22:32 Calcium 8.3 mg/dL (8.6-10.3) L 01/26/17 04:20 Total Bilirubin 1.3 mg/dL (0.3-1.0) H 01/25/17 05:21 AST 60 U/L (13-39) H 01/25/17 05:21 ALT 38 U/L (7-52) 01/25/17 05:21 Alkaline Phosphatase 65 U/L (34-104) 01/25/17 05:21 Creatine Kinase 404 U/L (30-223) H 01/21/17 22:32 CK-MB (CK-2) 3.7 ng/mL (0.6-6.3) 01/21/17 22:32 Troponin I 0.02 ng/mL (0.01-0.05) 01/21/17 22:32 B-Natriuretic Peptide 104.0 pg/mL (5.0-100.0) H 01/21/17 22:32 Total Protein 7.4 gm/dL (6.0-8.3) 01/25/17 05:21 Albumin 3.7 gm/dL (4.2-5.5) L 01/25/17 05:21 Globulin 3.7 gm/dL 01/25/17 05:21 Albumin/Globulin Ratio 1.0 (1.0-1.8) 01/25/17 05:21 Triglycerides 113 mg/dL (<150) 01/21/17 22:32 Cholesterol 136 mg/dL (<200) 01/21/17 22:32 LDL Cholesterol Direct 88 mg/dL (75-193) 01/21/17 22:32 HDL Cholesterol 33 mg/dL (23-92) 01/21/17 22:32 Urine Source MIDSTREAM 01/21/17 22:30 Urine Color ORANGE 01/21/17 22:30 Urine Clarity CLOUDY (CLEAR) 01/21/17 22:30 Urine pH 5.5 (4.6 - 8.0) 01/21/17 22:30 Ur Specific [place] 1.025 (1.005-1.030) 01/21/17 22:30 Urine Protein 30 mg/dL (NEGATIVE) H 01/21/17 22:30 Urine Glucose (UA) NEGATIVE mg/dL (NEGATIVE) 01/21/17 22:30 Urine Ketones NEGATIVE mg/dL (NEGATIVE) 01/21/17 22:30 Urine Blood TRACE (NEGATIVE) 01/21/17 22:30 Urine Nitrate NEGATIVE (NEGATIVE) 01/21/17 22:30 Urine Bilirubin NEGATIVE (NEGATIVE) 01/21/17 22:30 Urine Urobilinogen 0.2 E.U./dL (0.2 - 1.0) 01/21/17 22:30 Ur Leukocyte Esterase NEGATIVE (NEGATIVE) 01/21/17 22:30 Urine RBC 2-5 /hpf (0-5) H 01/21/17 22:30 Urine WBC 0-2 /hpf (0-5) 01/21/17 22:30 Ur Epithelial Cells MODERATE /lpf (FEW) 01/21/17 22:30 Uric Acid Crystals MODERATE /hpf (NONE SEEN) 01/21/17 22:30 Urine Bacteria FEW /hpf (NONE SEEN) 01/21/17 22:30 Vancomycin Trough 42.8 ug/mL (10-20) H 01/25/17 09:00 Random Vancomycin 24.3 ug/mL (5.0-40.0) 01/26/17 04:20 - Physical Exam Vitals and I&O: Vital Signs Temp 99.2 F 01/26/17 15:57 Pulse 80 01/26/17 15:57 Resp 17 01/26/17 15:57 BP 83/48 01/26/17 15:57 Pulse Ox 97 01/26/17 15:57 Intake & Output 01/26/17 01/26/17 01/27/17 06:59 18:59 06:59 Intake Total 150 78.333 Balance 150 78.333 Weight (lbs) 64.319 kg Intake: Intake, IV Amount 150 78.333 Piperacillin Sodium/ 150 78.333 Tazobact 3.375 gm In Sodium Chloride 0.9% 50 ml @ 100 mls/hr IV Q6HR [facility] Rx#:[id number] Other: Stool Characteristics Soft Soft Active Medications: Current Medications Acetaminophen (Tylenol) 650 mg PO Q4HR PRN PRN Reason: Mild Pain/Headache/T above 101 Stop: 03/23/17 07:35 Acetaminophen (Tylenol 650mg Supp) 650 mg RC Q6H PRN PRN Reason: FEVER T ABOVE 101 Stop: 03/23/17 11:36 Last Admin: 01/23/17 12:02 Dose: 650 mg Ascorbic Acid (Vitamin C) 500 mg PO DAILY [facility] Stop: 03/23/17 08:59 Last Admin: 01/26/17 10:06 Dose: Not Given Aspirin (Aspirin Chewable) 81 mg PO DAILY [facility] Stop: 03/23/17 08:59 Last Admin: 01/26/17 10:06 Dose: Not Given Baclofen (Lioresal) 10 mg PO TID [facility] Stop: 03/23/17 08:59 Last Admin: 01/26/17 14:21 Dose: Not Given Carbidopa/Levodopa (Sinemet 25mg-100 Mg) 1 tab PO DAILY [facility] Stop: 03/23/17 08:59 Last Admin: 01/26/17 10:06 Dose: Not Given Entacapone (Comtan) 200 mg PO TID [facility] Stop: 03/23/17 08:59 Last Admin: 01/26/17 14:21 Dose: Not Given Gabapentin (Neurontin) 300 mg PO TID [facility] Stop: 03/23/17 08:59 Last Admin: 01/26/17 14:21 Dose: Not Given Piperacillin Sod/Tazobactam (Sod 3.375 gm/ Sodium Chloride) 50 mls @ 100 mls/ hr IV Q6HR [facility] Stop: 03/26/17 14:59 Last Infusion: 01/26/17 18:31 Dose: 100 mls/hr Albumin Human (Albuminar 25%) 25 gm in 100 mls @ 50 mls/hr IV UD PRN PRN Reason: BP SUPPORT DURING HD Sodium Chloride (Nacl 0.45%) 1,000 mls @ 100 mls/hr IV .Q10H [facility] Stop: 03/26/17 21:07 Insulin Aspart (Novolog Insulin Sliding Scale) 0 units SUBQ ACHS [facility] PRN Reason: Protocol Stop: 03/23/17 22:44 Last Admin: 01/26/17 16:43 Dose: Not Given Lactobacillus Rhamnosus (Culturelle) 1 each PO DAILY [facility] Stop: 03/24/17 08:59 Last Admin: 01/26/17 10:06 Dose: Not Given Metformin HCl (Glucophage) 500 mg PO BID [facility] Stop: 03/23/17 08:59 Last Admin: 01/26/17 16:44 Dose: Not Given Miscellaneous (Vancomycin Iv Per Pharmacy) 1 ea MC DAILY [facility] Stop: 03/23/17 08:59 Miscellaneous (Zosyn Iv Per Pharmacy) 1 ea DAILY PRN PRN Reason: Cough or Congestion Stop: 03/23/17 04:03 Miscellaneous (Probiotic Screen) 1 ea MC PRN PRN PRN Reason: PROTOCOL Stop: 03/23/17 11:14 Morphine Sulfate (Morphine) 1 mg IVP Q2HR PRN PRN Reason: Pain (Moderate) Stop: 03/23/17 15:34 Last Admin: 01/26/17 12:44 Dose: 1 mg Pramipexole Dihydrochloride (Mirapex) 0.75 mg PO TID [facility] PRN Reason: Protocol Stop: 03/23/17 08:59 Last Admin: 01/26/17 14:21 Dose: Not Given Tramadol HCl (Ultram) 50 mg PO TID PRN PRN Reason: Pain (Severe) Stop: 03/23/17 07:35 General: weak HEENT: NC/AT, PERRLA Neck: Supple Lungs: ronchi Cardiovascular: RRR, without murmur Abdomen: soft, non-tender, non-distended, positive bowel sound Extremities: excoriation Internal Medicine Assmt/Plan - Assessment Assessment: Aspiration pneumonia (Acute) J69.0 CAD (coronary artery disease) (Acute) I25.10 Dementia (Acute) F03.90 Sacral wound (Acute) S31.000A Sepsis (Acute) - Plan Plan: cpm Nutritional Asmnt/Malnutr-PDOC - Dietary Evaluation Malnutrition Findings (Please click <Entered> for more info): Nutritional Asmnt/Malnutrition Start: 01/23/17 09: 29 Text: Status: Complete Freq: Document 01/23/17 09:29 VANESSA (Rec[facility] 01/23/17 09:[facility] Nutritional Asmnt/Malnutrition Patient General Information Nutritional Screening Consult Diagnosis Pneumonia, leukocytosis, sepsis, UTI, dehydration, hypernatremia Pertinent Medical Hx/Surgical Hx HTN, DM, CAD, CVA/TIA, dyslipidemia, arthritis, dementia per MD notes Parkinson's per pt's sister Subjective Information RD received Nutrition Consult (glucose 334 upon admission). Pt was seen and assessed on . Pt was non-verbal; sister at bedside provided diet Hx. She stated that pt had not eaten since 01/19/17 at [facility] as he was not able to swallow and had been deteriorating. She stated that pt had been on a soft diet. Per RN, pt is DNR, and pt had requested no artificial means of nutrition when he was more alert [employer]SL[employer]. Plans for hospice eval per RN. Pt is not meeting optimal nutritional needs. Pt is not appropriate for nutrition education. Current Diet Order/ Nutrition Support N/A Patient / S.O Can't verbalize diet edu Pertinent Medications piperacillin/tazobactam/NaCl IV, vancomycin/NaCl IV Pertinent Labs Na 151 H, BG 277 H, BUN 62 H, HgA1c 7.2 H, ALB 3.8 L, Tbili 1.7 H, WBC 21.1 H, Cl 116 H, ALP 114 H Nutritional Hx/Data Height 1.73 m Height (Calculated Centimeters) 172.7 Current Weight (lbs) 60.781 kg Weight (Calculated Kilograms) 60.8 Weight (Calculated Grams) 86026.4 [place] Body Weight 154 lb, 70 kg % [place] Body Weight 87 Recent Weight Change Yes Weight Status Approriate GI Symptoms GI Symptoms None Difficult in: Chewing Swallowing Usual diet at home Soft foods Skin Integrity/Comment: Franco scale: 14; per RN, pt has a sacral wound Current %PO Negligible < 25% Estimated Nutritional Goals Calories/Kcals/Kg 30-35 kcal/kg IBW for sepsis, wound healing Kcals Calculated 5363-2577 kcal/day Protein g/k.5-2 gm/kg IBW for sepsis, wound healing Protein Calculated 105-140 gm/say Fluid: ml 2.1-2.5 L/day (1 ml/kcal/day for maintenance) Nutritional Problem 1. Problem Problem Inadequate nutritional intakes Etiology related to catabolism Signs/Symptoms: as evidenced by NPO greater than 3 days, and no current nutrition support to meet estimated nutritional requirements. Malnutrition Alert Food and Nutrition Intake (Severe) <50% est energy req 5days Body Fat Depletion (Non-Severe) Mild Depletion Muscle Mass (Non-Severe) Mild Depletion Is there a minimum of two criteria Yes selected? Query Text:Check all the applicable criteria. A minimum of two criteria are recommended for diagnosis of either severe or non-severe malnutrition. Malnutrition Related to Morbid Obesity Malnutrition related to morbid obesity No Intervention/Recommendation Comments * Consider nutrition support ( EN via NGT) if indicated Expected Outcomes/Goals Expected Outcomes/Goals - Monitor need for EN support w/ goal of pt meeting at least 25% of estimated nutritional needs, labs trending WNL, normal GI function, and skin integrity/wt maintenance within 2-3 days
[2017-01-26] MEDS: Sodium Chloride 0.45% 1,000 ML IV SCH (21:54)
[2017-01-27] MEDS: Sodium Chloride 0.45% 1,000 ML IV SCH ×2 (01:46→09:00)
[2017-01-27 05:43] LABS: ALB/GLOB RATIO 0.9 (1.0-1.8); ANION GAP 11.4 (7.0-16.0); BILIRUBIN,TOTAL 0.8 mg/dL (0.3-1.0); BUN/CREATININE RATIO 31.8; CALCIUM SERUM 8.4 mg/dL (8.6-10.3); CARBON DIOXIDE 19.1 mEq/L (21.0-31.0); MAGNESIUM 3.1 mg/dL (1.9-2.7); POTASSIUM SERUM 3.5 mEq/L (3.5-5.1)
[2017-01-27 06:00] LABS: % BASOPHILS 0.2 % (0.0-2.0); % EOSINOPHILS 0.5 % (0.0-5.0); % LYMPHOCYTES 11.8 % (20.0-50.0); % NEUTROPHILS 85.5 % (40.0-80.0); HEMATOCRIT 31.7 % (41.0-60); HEMOGLOBIN 10.6 gm/dL (12-16); MEAN CELL VOLUME 85.3 fl (80-99); MEAN CORPUSCULAR HEMOGLOBIN 28.5 pg (26.0-30.0); MEAN CORPUSCULAR HGB CONC 33.4 pg (28.0-36.0); MEAN PLATELET VOLUME 13.1 fl; NEUTROPHILE ABSOLUTE 10.2 Th/cmm (1.8-8.0); PLATELET COUNT 69 Th/cmm (150-400); RED BLOOD COUNT 3.72 Mil/cmm (4.30-5.70); RED CELL DISTRIBUTION WIDTH 13.9 % (11.5-20.0); WHITE BLOOD COUNT 11.9 Th/cmm (4.8-10.8)
[2017-01-27] MEDS: Morphine Sulfate 2 mg/mL 1mL Syr IVP PRN ×2 (06:22→11:43)
--- NOTE | 2017-01-27 07:49 | Diagnostic Imaging Report ---
Exam: Ultrasound examination of kidneys diagnosis acute renal failure. Findings: Real-time ultrasound examination of the kidneys bilaterally performed multiple planes. The study demonstrates no evidence of obstructive uropathy or nephrolithiasis. Right kidney measures 11.3 x 6.1 x 6.1 cm in diameter. Left kidney measures 11.4 x 5.2 x 5.4 cm diameter. The bladder is normal with Molina catheter. Prostate gland is enlarged. IMPRESSION: Normal examination of the kidneys.
--- NOTE | 2017-01-27 08:47 | General Progress Note ---
Subjective - Review of Systems Events since last encounter: awake alert no distress Objective - Results Result Diagrams: 01/27/17 05:05 01/27/17 05:05 Recent Labs: Laboratory Last Values WBC 11.9 Th/cmm (4.8-10.8) H 01/27/17 05:05 RBC 3.72 Mil/cmm (4.30-5.70) L 01/27/17 05:05 Hgb 10.6 gm/dL (12-16) L 01/27/17 05:05 Hct 31.7 % (41.0-60) L 01/27/17 05:05 MCV 85.3 fl (80-99) 01/27/17 05:05 MCH 28.5 pg (26.0-30.0) 01/27/17 05:05 MCHC Differential 33.4 pg (28.0-36.0) 01/27/17 05:05 RDW 13.9 % (11.5-20.0) 01/27/17 05:05 Plt Count 69 Th/cmm (150-400) L 01/27/17 05:05 MPV 13.1 fl 01/27/17 05:05 Neutrophils % 85.5 % (40.0-80.0) H 01/27/17 05:05 Band Neutrophils % 3 % (0-10) 01/25/17 05:21 Lymphocytes % 11.8 % (20.0-50.0) L 01/27/17 05:05 Monocytes % 2.0 % (2.0-10.0) 01/27/17 05:05 Eosinophils % 0.5 % (0.0-5.0) 01/27/17 05:05 Basophils % 0.2 % (0.0-2.0) 01/27/17 05:05 Neutrophils (Manual) 72 % (40-80) 01/25/17 05:21 Lymphocytes 23 % (20-50) 01/25/17 05:21 Monocytes 2 % (2-10) 01/25/17 05:21 Platelet Estimate ADEQUATE (NORMAL) 01/24/17 04:56 Platelet Morphology PLATELET CLUMPS SEEN (NORMAL) 01/24/17 04:56 RBC Morph Micro Appear NORMAL (NORMAL) 01/24/17 04:56 PT 13.4 SECONDS (9.5-11.5) H 01/21/17 22:32 INR 1.27 (0.5-1.4) 01/21/17 22:32 PTT (Actin FS) 25.0 SECONDS (26.0-38.0) L 01/21/17 22:32 Sodium 168 mEq/L (136-145) H* 01/27/17 05:05 Potassium 3.5 mEq/L (3.5-5.1) 01/27/17 05:05 Chloride 141 mEq/L (98-107) H 01/27/17 05:05 Carbon Dioxide 19.1 mEq/L (21.0-31.0) L 01/27/17 05:05 Anion Gap 11.4 (7.0-16.0) 01/27/17 05:05 BUN 127 mg/dL (7-25) H* 01/27/17 05:05 Creatinine 4.0 mg/dL (0.7-1.3) H 01/27/17 05:05 Est GFR ( Amer) 19.7 ml/min (>90) 01/27/17 05:05 Est GFR (Non-Af Amer) 16.3 ml/min 01/27/17 05:05 BUN/Creatinine Ratio 31.8 01/27/17 05:05 Glucose 282 mg/dL (70-105) H 01/27/17 05:05 POC Glucose 220 MG/DL (70 - 105) H 01/26/17 20:59 Hemoglobin A1c % 7.2 % (4.0-6.0) H 01/21/17 22:32 Whole Bld Lactic Acid 1.93 mmol/L (0.60-1.99) 01/21/17 22:32 Uric Acid 9.0 mg/dL (4.4-7.6) H 01/27/17 05:05 Calcium 8.4 mg/dL (8.6-10.3) L 01/27/17 05:05 Phosphorus 5.0 mg/dL (2.5-5.0) 01/27/17 05:05 Magnesium 3.1 mg/dL (1.9-2.7) H 01/27/17 05:05 Total Bilirubin 0.8 mg/dL (0.3-1.0) 01/27/17 05:05 AST 63 U/L (13-39) H 01/27/17 05:05 ALT 43 U/L (7-52) 01/27/17 05:05 Alkaline Phosphatase 65 U/L (34-104) 01/27/17 05:05 Creatine Kinase 404 U/L (30-223) H 01/21/17 22:32 CK-MB (CK-2) 3.7 ng/mL (0.6-6.3) 01/21/17 22:32 Troponin I 0.02 ng/mL (0.01-0.05) 01/21/17 22:32 B-Natriuretic Peptide 104.0 pg/mL (5.0-100.0) H 01/21/17 22:32 Total Protein 6.0 gm/dL (6.0-8.3) 01/27/17 05:05 Albumin 2.8 gm/dL (4.2-5.5) L 01/27/17 05:05 Globulin 3.2 gm/dL 01/27/17 05:05 Albumin/Globulin Ratio 0.9 (1.0-1.8) L 01/27/17 05:05 Triglycerides 113 mg/dL (<150) 01/21/17 22:32 Cholesterol 136 mg/dL (<200) 01/21/17 22:32 LDL Cholesterol Direct 88 mg/dL (75-193) 01/21/17 22:32 HDL Cholesterol 33 mg/dL (23-92) 01/21/17 22:32 Urine Source MIDSTREAM 01/21/17 22:30 Urine Color ORANGE 01/21/17 22:30 Urine Clarity CLOUDY (CLEAR) 01/21/17 22:30 Urine pH 5.5 (4.6 - 8.0) 01/21/17 22:30 Ur Specific [place] 1.025 (1.005-1.030) 01/21/17 22:30 Urine Protein 30 mg/dL (NEGATIVE) H 01/21/17 22:30 Urine Glucose (UA) NEGATIVE mg/dL (NEGATIVE) 01/21/17 22:30 Urine Ketones NEGATIVE mg/dL (NEGATIVE) 01/21/17 22:30 Urine Blood TRACE (NEGATIVE) 01/21/17 22:30 Urine Nitrate NEGATIVE (NEGATIVE) 01/21/17 22:30 Urine Bilirubin NEGATIVE (NEGATIVE) 01/21/17 22:30 Urine Urobilinogen 0.2 E.U./dL (0.2 - 1.0) 01/21/17 22:30 Ur Leukocyte Esterase NEGATIVE (NEGATIVE) 01/21/17 22:30 Urine RBC 2-5 /hpf (0-5) H 01/21/17 22:30 Urine WBC 0-2 /hpf (0-5) 01/21/17 22:30 Ur Epithelial Cells MODERATE /lpf (FEW) 01/21/17 22:30 Uric Acid Crystals MODERATE /hpf (NONE SEEN) 01/21/17 22:30 Urine Bacteria FEW /hpf (NONE SEEN) 01/21/17 22:30 Vancomycin Trough 42.8 ug/mL (10-20) H 01/25/17 09:00 Random Vancomycin 24.3 ug/mL (5.0-40.0) 01/26/17 04:20 - Physical Exam Vitals and I&O: Vital Signs Temp 97.8 F 01/27/17 04:00 Pulse 102 01/27/17 04:00 Resp 22 01/27/17 04:00 BP 91/52 01/27/17 04:00 Pulse Ox 97 01/27/17 04:00 Intake & Output 01/26/17 01/27/17 01/27/17 18:59 06:59 18:59 Intake Total 78.333 456.667 Balance 78.333 456.667 Intake: Intake, IV Amount 78.333 456.667 Piperacillin Sodium/ 78.333 71.667 Tazobact 3.375 gm In Sodium Chloride 0.9% 50 ml @ 100 mls/hr IV Q6HR [facility] Rx#:[id number] Sodium Chloride 0.45% 1, 385 000 ml @ 100 mls/hr IV . Q10H [facility] Rx#:[id number] Other: Stool Characteristics Soft Soft Active Medications: Current Medications Acetaminophen (Tylenol) 650 mg PO Q4HR PRN PRN Reason: Mild Pain/Headache/T above 101 Stop: 03/23/17 07:35 Acetaminophen (Tylenol 650mg Supp) 650 mg RC Q6H PRN PRN Reason: FEVER T ABOVE 101 Stop: 03/23/17 11:36 Last Admin: 01/23/17 12:02 Dose: 650 mg Ascorbic Acid (Vitamin C) 500 mg PO DAILY [facility] Stop: 03/23/17 08:59 Last Admin: 01/26/17 10:06 Dose: Not Given Aspirin (Aspirin Chewable) 81 mg PO DAILY [facility] Stop: 03/23/17 08:59 Last Admin: 01/26/17 10:06 Dose: Not Given Baclofen (Lioresal) 10 mg PO TID [facility] Stop: 03/23/17 08:59 Last Admin: 01/26/17 21:56 Dose: Not Given Carbidopa/Levodopa (Sinemet 25mg-100 Mg) 1 tab PO DAILY [facility] Stop: 03/23/17 08:59 Last Admin: 01/26/17 10:06 Dose: Not Given Entacapone (Comtan) 200 mg PO TID [facility] Stop: 03/23/17 08:59 Last Admin: 01/26/17 21:56 Dose: Not Given Gabapentin (Neurontin) 300 mg PO TID [facility] Stop: 03/23/17 08:59 Last Admin: 01/26/17 21:56 Dose: Not Given Piperacillin Sod/Tazobactam (Sod 3.375 gm/ Sodium Chloride) 50 mls @ 100 mls/ hr IV Q6HR [facility] Stop: 03/26/17 14:59 Last Admin: 01/27/17 06:15 Dose: 100 mls/hr Albumin Human (Albuminar 25%) 25 gm in 100 mls @ 50 mls/hr IV UD PRN PRN Reason: BP SUPPORT DURING HD Sodium Chloride (Nacl 0.45%) 1,000 mls @ 100 mls/hr IV .Q10H [facility] Stop: 03/26/17 21:07 Last Admin: 01/27/17 01:46 Dose: 100 mls/hr Insulin Aspart (Novolog Insulin Sliding Scale) 0 units SUBQ ACHS [facility] PRN Reason: Protocol Stop: 03/23/17 22:44 Last Admin: 01/26/17 21:56 Dose: Not Given Lactobacillus Rhamnosus (Culturelle) 1 each PO DAILY [facility] Stop: 03/24/17 08:59 Last Admin: 01/26/17 10:06 Dose: Not Given Metformin HCl (Glucophage) 500 mg PO BID [facility] Stop: 03/23/17 08:59 Last Admin: 01/26/17 16:44 Dose: Not Given Miscellaneous (Vancomycin Iv Per Pharmacy) 1 ea MC DAILY [facility] Stop: 03/23/17 08:59 Miscellaneous (Zosyn Iv Per Pharmacy) 1 ea MC DAILY PRN PRN Reason: Cough or Congestion Stop: 03/23/17 04:03 Miscellaneous (Probiotic Screen) 1 ea MC PRN PRN PRN Reason: PROTOCOL Stop: 03/23/17 11:14 Morphine Sulfate (Morphine) 1 mg IVP Q2HR PRN PRN Reason: Pain (Moderate) Stop: 03/23/17 15:34 Last Admin: 01/27/17 06:22 Dose: 1 mg Pramipexole Dihydrochloride (Mirapex) 0.75 mg PO TID [facility] PRN Reason: Protocol Stop: 03/23/17 08:59 Last Admin: 01/26/17 21:57 Dose: Not Given Tramadol HCl (Ultram) 50 mg PO TID PRN PRN Reason: Pain (Severe) Stop: 03/23/17 07:35 General: No acute distress HEENT: Atraumatic, PERRLA Neck: Supple Cardiovascular: Regular rate, Normal S1, Normal S2 Abdomen: Bowel sounds, Soft Extremities: Clubbing Neurological: Normal gait Skin: no Rash Psych/Mental Status: Mood NL Assessment/Plan - Problem List Patient Problems: All Active Problems Aspiration pneumonia (Acute) J69.0 CAD (coronary artery disease) (Acute) I25.10 Dementia (Acute) F03.90 Sacral wound (Acute) S31.000A Sepsis (Acute) - Assessment Assessment: Aspiration pneumonia (Acute) J69.0 CAD (coronary artery disease) (Acute) I25.10 Dementia (Acute) F03.90 Sacral wound (Acute) S31.000A Sepsis (Acute) - Plan Plan: cpm Nutritional Asmnt/Malnutr-PDOC - Dietary Evaluation Malnutrition Findings (Please click <Entered> for more info): Nutritional Asmnt/Malnutrition Start: 01/23/17 09: 29 Text: Status: Complete Freq: Document 01/23/17 09:29 VANESSA (Rec: 01/23/17 09:39 VANESSA [place] -FNS4) Nutritional Asmnt/Malnutrition Patient General Information Nutritional Screening Consult Diagnosis Pneumonia, leukocytosis, sepsis, UTI, dehydration, hypernatremia Pertinent Medical Hx/Surgical Hx HTN, DM, CAD, CVA/TIA, dyslipidemia, arthritis, dementia per MD notes Parkinson's per pt's sister Subjective Information RD received Nutrition Consult (glucose 334 upon admission). Pt was seen and assessed on . Pt was non-verbal; sister at bedside provided diet Hx. She stated that pt had not eaten since 01/19/17 at [facility] as he was not able to swallow and had been deteriorating. She stated that pt had been on a soft diet. Per RN, pt is DNR, and pt had requested no artificial means of nutrition when he was more alert [employer]. Plans for hospice eval per RN. Pt is not meeting optimal nutritional needs. Pt is not appropriate for nutrition education. Current Diet Order/ Nutrition Support N/A Patient / S.O Can't verbalize diet edu Pertinent Medications piperacillin/tazobactam/NaCl IV, vancomycin/NaCl IV Pertinent Labs Na 151 H, BG 277 H, BUN 62 H, HgA1c 7.2 H, ALB 3.8 L, Tbili 1.7 H, WBC 21.1 H, Cl 116 H, ALP 114 H Nutritional Hx/Data Height 1.73 m Height (Calculated Centimeters) 172.7 Current Weight (lbs) 60.781 kg Weight (Calculated Kilograms) 60.8 Weight (Calculated Grams) 33525.4 [place] Body Weight 154 lb, 70 kg % [place] Body Weight 87 Recent Weight Change Yes Weight Status Approriate GI Symptoms GI Symptoms None Difficult in: Chewing Swallowing Usual diet at home Soft foods Skin Integrity/Comment: Franco scale: 14; per RN, pt has a sacral wound Current %PO Negligible < 25% Estimated Nutritional Goals Calories/Kcals/Kg 30-35 kcal/kg IBW for sepsis, wound healing Kcals Calculated 9200-3365 kcal/day Protein g/k.5-2 gm/kg IBW for sepsis, wound healing Protein Calculated 105-140 gm/say Fluid: ml 2.1-2.5 L/day (1 ml/kcal/day for maintenance) Nutritional Problem 1. Problem Problem Inadequate nutritional intakes Etiology related to catabolism Signs/Symptoms: as evidenced by NPO greater than 3 days, and no current nutrition support to meet estimated nutritional requirements. Malnutrition Alert Food and Nutrition Intake (Severe) <50% est energy req 5days Body Fat Depletion (Non-Severe) Mild Depletion Muscle Mass (Non-Severe) Mild Depletion Is there a minimum of two criteria Yes selected? Query Text:Check all the applicable criteria. A minimum of two criteria are recommended for diagnosis of either severe or non-severe malnutrition. Malnutrition Related to Morbid Obesity Malnutrition related to morbid obesity No Intervention/Recommendation Comments * Consider nutrition support ( EN via NGT) if indicated Expected Outcomes/Goals Expected Outcomes/Goals - Monitor need for EN support w/ goal of pt meeting at least 25% of estimated nutritional needs, labs trending WNL, normal GI function, and skin integrity/wt maintenance within 2-3 days
[2017-01-27] MEDS: INSULIN ASPART SLIDING SCALE 100 UNITS/ML UNIT SUBQ SCH ×2 (09:53→12:31)
[2017-01-27] MEDS: Aspirin 81mg Chewable Tab PO SCH (09:54)
[2017-01-27] MEDS: Lactobacillus Rhamnosus 10 Billion CFU Capsule PO SCH (09:55)
[2017-01-27] MEDS: Multivitamin w/ Minerals Tab PO SCH (09:57)
--- NOTE | 2017-01-27 10:59 | Infectious Disease Prog Note ---
Infectious Disease Subjective - Review of Systems Service Date: 01/27/17 Subjective: No change. Low grade fever. unable to communicate. Infectious Disease Objective - Results Result Diagrams: 01/27/17 05:05 01/27/17 05:05 Recent Labs: Laboratory Last Values WBC 11.9 Th/cmm (4.8-10.8) H 01/27/17 05:05 RBC 3.72 Mil/cmm (4.30-5.70) L 01/27/17 05:05 Hgb 10.6 gm/dL (12-16) L 01/27/17 05:05 Hct 31.7 % (41.0-60) L 01/27/17 05:05 MCV 85.3 fl (80-99) 01/27/17 05:05 MCH 28.5 pg (26.0-30.0) 01/27/17 05:05 MCHC Differential 33.4 pg (28.0-36.0) 01/27/17 05:05 RDW 13.9 % (11.5-20.0) 01/27/17 05:05 Plt Count 69 Th/cmm (150-400) L 01/27/17 05:05 MPV 13.1 fl 01/27/17 05:05 Neutrophils % 85.5 % (40.0-80.0) H 01/27/17 05:05 Band Neutrophils % 3 % (0-10) 01/25/17 05:21 Lymphocytes % 11.8 % (20.0-50.0) L 01/27/17 05:05 Monocytes % 2.0 % (2.0-10.0) 01/27/17 05:05 Eosinophils % 0.5 % (0.0-5.0) 01/27/17 05:05 Basophils % 0.2 % (0.0-2.0) 01/27/17 05:05 Neutrophils (Manual) 72 % (40-80) 01/25/17 05:21 Lymphocytes 23 % (20-50) 01/25/17 05:21 Monocytes 2 % (2-10) 01/25/17 05:21 Platelet Estimate ADEQUATE (NORMAL) 01/24/17 04:56 Platelet Morphology PLATELET CLUMPS SEEN (NORMAL) 01/24/17 04:56 RBC Morph Micro Appear NORMAL (NORMAL) 01/24/17 04:56 PT 13.4 SECONDS (9.5-11.5) H 01/21/17 22:32 INR 1.27 (0.5-1.4) 01/21/17 22:32 PTT (Actin FS) 25.0 SECONDS (26.0-38.0) L 01/21/17 22:32 Sodium 168 mEq/L (136-145) H* 01/27/17 05:05 Potassium 3.5 mEq/L (3.5-5.1) 01/27/17 05:05 Chloride 141 mEq/L (98-107) H 01/27/17 05:05 Carbon Dioxide 19.1 mEq/L (21.0-31.0) L 01/27/17 05:05 Anion Gap 11.4 (7.0-16.0) 01/27/17 05:05 BUN 127 mg/dL (7-25) H* 01/27/17 05:05 Creatinine 4.0 mg/dL (0.7-1.3) H 01/27/17 05:05 Est GFR ( Amer) 19.7 ml/min (>90) 01/27/17 05:05 Est GFR (Non-Af Amer) 16.3 ml/min 01/27/17 05:05 BUN/Creatinine Ratio 31.8 01/27/17 05:05 Glucose 282 mg/dL (70-105) H 01/27/17 05:05 POC Glucose 220 MG/DL (70 - 105) H 01/26/17 20:59 Hemoglobin A1c % 7.2 % (4.0-6.0) H 01/21/17 22:32 Whole Bld Lactic Acid 1.93 mmol/L (0.60-1.99) 01/21/17 22:32 Uric Acid 9.0 mg/dL (4.4-7.6) H 01/27/17 05:05 Calcium 8.4 mg/dL (8.6-10.3) L 01/27/17 05:05 Phosphorus 5.0 mg/dL (2.5-5.0) 01/27/17 05:05 Magnesium 3.1 mg/dL (1.9-2.7) H 01/27/17 05:05 Total Bilirubin 0.8 mg/dL (0.3-1.0) 01/27/17 05:05 AST 63 U/L (13-39) H 01/27/17 05:05 ALT 43 U/L (7-52) 01/27/17 05:05 Alkaline Phosphatase 65 U/L (34-104) 01/27/17 05:05 Creatine Kinase 404 U/L (30-223) H 01/21/17 22:32 CK-MB (CK-2) 3.7 ng/mL (0.6-6.3) 01/21/17 22:32 Troponin I 0.02 ng/mL (0.01-0.05) 01/21/17 22:32 B-Natriuretic Peptide 104.0 pg/mL (5.0-100.0) H 01/21/17 22:32 Total Protein 6.0 gm/dL (6.0-8.3) 01/27/17 05:05 Albumin 2.8 gm/dL (4.2-5.5) L 01/27/17 05:05 Globulin 3.2 gm/dL 01/27/17 05:05 Albumin/Globulin Ratio 0.9 (1.0-1.8) L 01/27/17 05:05 Triglycerides 113 mg/dL (<150) 01/21/17 22:32 Cholesterol 136 mg/dL (<200) 01/21/17 22:32 LDL Cholesterol Direct 88 mg/dL (75-193) 01/21/17 22:32 HDL Cholesterol 33 mg/dL (23-92) 01/21/17 22:32 Urine Source MIDSTREAM 01/21/17 22:30 Urine Color ORANGE 01/21/17 22:30 Urine Clarity CLOUDY (CLEAR) 01/21/17 22:30 Urine pH 5.5 (4.6 - 8.0) 01/21/17 22:30 Ur Specific [place] 1.025 (1.005-1.030) 01/21/17 22:30 Urine Protein 30 mg/dL (NEGATIVE) H 01/21/17 22:30 Urine Glucose (UA) NEGATIVE mg/dL (NEGATIVE) 01/21/17 22:30 Urine Ketones NEGATIVE mg/dL (NEGATIVE) 01/21/17 22:30 Urine Blood TRACE (NEGATIVE) 01/21/17 22:30 Urine Nitrate NEGATIVE (NEGATIVE) 01/21/17 22:30 Urine Bilirubin NEGATIVE (NEGATIVE) 01/21/17 22:30 Urine Urobilinogen 0.2 E.U./dL (0.2 - 1.0) 01/21/17 22:30 Ur Leukocyte Esterase NEGATIVE (NEGATIVE) 01/21/17 22:30 Urine RBC 2-5 /hpf (0-5) H 01/21/17 22:30 Urine WBC 0-2 /hpf (0-5) 01/21/17 22:30 Ur Epithelial Cells MODERATE /lpf (FEW) 01/21/17 22:30 Uric Acid Crystals MODERATE /hpf (NONE SEEN) 01/21/17 22:30 Urine Bacteria FEW /hpf (NONE SEEN) 01/21/17 22:30 Vancomycin Trough 42.8 ug/mL (10-20) H 01/25/17 09:00 Random Vancomycin 25.1 ug/mL (5.0-40.0) 01/27/17 05:05 - Physical Exam Vitals and I&O: Vital Signs Temp 96.4 F 01/27/17 10:05 Pulse 75 01/27/17 10:05 Resp 22 01/27/17 10:05 BP 91/54 01/27/17 10:05 Pulse Ox 96 01/27/17 10:05 Intake & Output 01/26/17 01/27/17 01/27/17 18:59 06:59 18:59 Intake Total 78.333 456.667 723.333 Balance 78.333 456.667 723.333 Intake: Intake, IV Amount 78.333 456.667 723.333 Piperacillin Sodium/ 78.333 71.667 Tazobact 3.375 gm In Sodium Chloride 0.9% 50 ml @ 100 mls/hr IV Q6HR [facility] Rx#:[id number] Sodium Chloride 0.45% 1, 385 723.333 000 ml @ 100 mls/hr IV . Q10H [facility] Rx#:[id number] Other: Stool Characteristics Soft Soft Soft Active Medications: Current Medications Acetaminophen (Tylenol) 650 mg PO Q4HR PRN PRN Reason: Mild Pain/Headache/T above 101 Stop: 03/23/17 07:35 Acetaminophen (Tylenol 650mg Supp) 650 mg RC Q6H PRN PRN Reason: FEVER T ABOVE 101 Stop: 03/23/17 11:36 Last Admin: 01/23/17 12:02 Dose: 650 mg Ascorbic Acid (Vitamin C) 500 mg PO DAILY GILDARDO Stop: 03/23/17 08:59 Last Admin: 01/27/17 09:54 Dose: Not Given Aspirin (Aspirin Chewable) 81 mg PO DAILY GILDARDO Stop: 03/23/17 08:59 Last Admin: 01/27/17 09:54 Dose: Not Given Baclofen (Lioresal) 10 mg PO TID GILDARDO Stop: 03/23/17 08:59 Last Admin: 01/27/17 09:55 Dose: Not Given Carbidopa/Levodopa (Sinemet 25mg-100 Mg) 1 tab PO DAILY GILDARDO Stop: 03/23/17 08:59 Last Admin: 01/27/17 09:55 Dose: Not Given Entacapone (Comtan) 200 mg PO TID GILDARDO Stop: 03/23/17 08:59 Last Admin: 01/27/17 09:55 Dose: Not Given Gabapentin (Neurontin) 300 mg PO TID GILDARDO Stop: 03/23/17 08:59 Last Admin: 01/27/17 09:55 Dose: Not Given Piperacillin Sod/Tazobactam (Sod 3.375 gm/ Sodium Chloride) 50 mls @ 100 mls/ hr IV Q6HR GILDARDO Stop: 03/26/17 14:59 Last Admin: 01/27/17 06:15 Dose: 100 mls/hr Albumin Human (Albuminar 25%) 25 gm in 100 mls @ 50 mls/hr IV UD PRN PRN Reason: BP SUPPORT DURING HD Sodium Chloride (Nacl 0.45%) 1,000 mls @ 100 mls/hr IV .Q10H GILDARDO Stop: 03/26/17 21:07 Last Admin: 01/27/17 09:00 Dose: 100 mls/hr Vancomycin HCl 1 gm/ Sodium (Chloride) 250 mls @ 165 mls/hr IV ONCE ONE Stop: 01/27/17 22:30 Insulin Aspart (Novolog Insulin Sliding Scale) 0 units SUBQ ACHS GILDARDO PRN Reason: Protocol Stop: 03/23/17 22:44 Last Admin: 01/27/17 09:53 Dose: Not Given Lactobacillus Rhamnosus (Culturelle) 1 each PO DAILY GILDARDO Stop: 03/24/17 08:59 Last Admin: 01/27/17 09:55 Dose: Not Given Metformin HCl (Glucophage) 500 mg PO BID [facility] Stop: 03/23/17 08:59 Last Admin: 01/27/17 09:56 Dose: Not Given Miscellaneous (Vancomycin Iv Per Pharmacy) 1 ea MC DAILY GILDARDO Stop: 03/23/17 08:59 Miscellaneous (Zosyn Iv Per Pharmacy) 1 ea MC DAILY PRN PRN Reason: Cough or Congestion Stop: 03/23/17 04:03 Miscellaneous (Probiotic Screen) 1 ea MC PRN PRN PRN Reason: PROTOCOL Stop: 03/23/17 11:14 Morphine Sulfate (Morphine) 1 mg IVP Q2HR PRN PRN Reason: Pain (Moderate) Stop: 03/23/17 15:34 Last Admin: 01/27/17 06:22 Dose: 1 mg Pramipexole Dihydrochloride (Mirapex) 0.75 mg PO TID GILDARDO PRN Reason: Protocol Stop: 03/23/17 08:59 Last Admin: 01/27/17 09:57 Dose: Not Given Tramadol HCl (Ultram) 50 mg PO TID PRN PRN Reason: Pain (Severe) Stop: 03/23/17 07:35 General: no acute distress, well developed, well nourished HEENT: atraumatic, normocephalic, EOMI Neck: supple, no thyromegaly Cardiovascular: S1S2, regular Lungs: clear to auscultation bilaterally, clear to percussion Abdomen: soft, no tender, no distended, no mass Extremities: no cyanosis, no clubbing, no edema Neurological: other (unresponsive) Skin: other (sacral wound.) Infectious Disease Assmt/Plan - Problem List Patient Problems: All Active Problems Aspiration pneumonia (Acute) J69.0 CAD (coronary artery disease) (Acute) I25.10 Dementia (Acute) F03.90 Sacral wound (Acute) S31.000A Sepsis (Acute) - Assessment Assessment: 1.sepsis 2/2 aspiration. 2. aspiration pneumonia. 3. sacral wound. 4. dementia. 5. cad. - Plan Plan: Continue vanco and Zosyn. Hospice care was ordered. Nutritional Asmnt/Malnutr-PDOC - Dietary Evaluation Malnutrition Findings (Please click <Entered> for more info): Nutritional Asmnt/Malnutrition Start: 01/23/17 09: 29 Text: Status: Complete Freq: Document 01/23/17 09:29 VANESSA (Rec: 01/23/17 09:39 VANESSA LONDONO -[id number]) Nutritional Asmnt/Malnutrition Patient General Information Nutritional Screening Consult Diagnosis Pneumonia, leukocytosis, sepsis, UTI, dehydration, hypernatremia Pertinent Medical Hx/Surgical Hx HTN, DM, CAD, CVA/TIA, dyslipidemia, arthritis, dementia per MD notes Parkinson's per pt's sister Subjective Information RD received Nutrition Consult (glucose 334 upon admission). Pt was seen and assessed on . Pt was non-verbal; sister at bedside provided diet Hx. She stated that pt had not eaten since 01/19/17 at [facility] as he was not able to swallow and had been deteriorating. She stated that pt had been on a soft diet. 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 Plans for hospice eval per RN. Pt is not meeting optimal nutritional needs. Pt is not appropriate for nutrition education. Current Diet Order/ Nutrition Support N/A Patient / S.O Can't verbalize diet edu Pertinent Medications piperacillin/tazobactam/NaCl IV, vancomycin/NaCl IV Pertinent Labs Na 151 H, BG 277 H, BUN 62 H, HgA1c 7.2 H, ALB 3.8 L, Tbili 1.7 H, WBC 21.1 H, Cl 116 H, ALP 114 H Nutritional Hx/Data Height 1.73 m Height (Calculated Centimeters) 172.7 Current Weight (lbs) 60.781 kg Weight (Calculated Kilograms) 60.8 Weight (Calculated Grams) 35823.4 Sargent Body Weight 154 lb, 70 kg % Sargent Body Weight 87 Recent Weight Change Yes Weight Status Approriate GI Symptoms GI Symptoms None Difficult in: Chewing Swallowing Usual diet at home Soft foods Skin Integrity/Comment: Franco scale: 14; per RN, pt has a sacral wound Current %PO Negligible < 25% Estimated Nutritional Goals Calories/Kcals/Kg 30-35 kcal/kg IBW for sepsis, wound healing Kcals Calculated 6454-8128 kcal/day Protein g/k.5-2 gm/kg IBW for sepsis, wound healing Protein Calculated 105-140 gm/say Fluid: ml 2.1-2.5 L/day (1 ml/kcal/day for maintenance) Nutritional Problem 1. Problem Problem Inadequate nutritional intakes Etiology related to catabolism Signs/Symptoms: as evidenced by NPO greater than 3 days, and no current nutrition support to meet estimated nutritional requirements. Malnutrition Alert Food and Nutrition Intake (Severe) <50% est energy req 5days Body Fat Depletion (Non-Severe) Mild Depletion Muscle Mass (Non-Severe) Mild Depletion Is there a minimum of two criteria Yes selected? Query Text:Check all the applicable criteria. A minimum of two criteria are recommended for diagnosis of either severe or non-severe malnutrition. Malnutrition Related to Morbid Obesity Malnutrition related to morbid obesity No Intervention/Recommendation Comments * Consider nutrition support ( EN via NGT) if indicated Expected Outcomes/Goals Expected Outcomes/Goals - Monitor need for EN support w/ goal of pt meeting at least 25% of estimated nutritional needs, labs trending WNL, normal GI function, and skin integrity/wt maintenance within 2-3 days
== END 2017-01-27 12:30 | disposition hospice, home (50) | DRG 871 ==
LOC: ER 21:48 → TELE 23:00
PROVIDERS: ADMIT Internal Medicine; ATTEND Internal Medicine
DX: A41.9 Sepsis, unspecified organism (principal); J69.0 Pneumonitis due to inhalation of food and vomit; E87.0 Hyperosmolality and hypernatremia; G20 Parkinson's disease; N39.0 Urinary tract infection, site not specified; E86.0 Dehydration; E11.9 Type 2 diabetes mellitus without complications; I10 Essential (primary) hypertension; I25.10 Atherosclerotic heart disease of native coronary artery without angina pectoris; M19.90 Unspecified osteoarthritis, unspecified site; Z66 Do not resuscitate; E78.5 Hyperlipidemia, unspecified; F02.80 Dementia in other diseases classified elsewhere, unspecified severity, without behavioral disturbance, psychotic disturbance, mood disturbance, and anxiety; S31.000A Unspecified open wound of lower back and pelvis without penetration into retroperitoneum, initial encounter; Z88.6 Allergy status to analgesic agent; Z86.73 Personal history of transient ischemic attack (TIA), and cerebral infarction without residual deficits; Z82.49 Family history of ischemic heart disease and other diseases of the circulatory system; Z83.3 Family history of diabetes mellitus; Z95.0 Presence of cardiac pacemaker; Z79.82 Long term (current) use of aspirin; Z79.4 Long term (current) use of insulin
CPT/HCPCS: 36415-UA; 71010-TC; 76770-TC; 80048-TC; 80053-TC; 80061-TC; 80202-TC; 81001-TC; 82550-TC; 82553; 82947-TC; 82948-90; 83036-90; 83605; 83735-TC; 83880-TC; 84100-TC; 84484-TC; 84550-TC; 85007-TC; 85025-TC; 85027-TC; 85610-TC; 85730-TC; 93005; 94760; J1815; J1956; J2270; J2543; J3370; J3480; J7030; J7070; P9046; Z7610